=== PATIENT | male | born 1990 | race Caucasian/White ===

== ENCOUNTER → 2017-02-03 | Outpatient (CLI) | payer OTHER ==
[~2017-02-03] MED LIST: NAPR-243 PO; TRAM50TA2 PO
--- NOTE | 2017-02-03 18:10 | Diagnostic Imaging Report ---
INDICATION: Bilateral knee pain. 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 Alignment of both knees appears normal. There is no acute fracture. There is no significant joint space narrowing and there is no evidence of significant joint effusion. IMPRESSION: 1. 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 No acute fractures demonstrated. Alignment of both knees is normal. There is no significant joint space narrowing and there is no evidence of a significant joint effusion. Dictated by: Dictated on workstation # [id number]
== END ==
LOC: RAD 17:40
PROVIDERS: ATTEND Family Medicine
DX: M25.562 Pain in left knee (principal); M25.561 Pain in right knee

== ENCOUNTER 2017-05-03 07:30 | Emergency (ER) | payer OTHER ==
[~2017-05-03] VITALS: Ht 167.6 cm; Wt 81.6 kg
[2017-05-03] MEDS ORDERED: TETRACAINE 0.5% OPHTH SOLN 4 ML BTL (SINGLE DOSE ONLY) ONE (07:54)
[2017-05-03] MEDS ORDERED: TETRACAINE 0.5% OPHTH SOLN 4 ML BTL (SINGLE DOSE ONLY) OP ONE (08:00)
[2017-05-03] MEDS ORDERED: KETOROLAC 60 MG/2 ML VIAL IM ONE (08:45)
[2017-05-03] MEDS ORDERED: oxyCODONE/APAP 5/325MG (PERCOCET 5) TABLET PO ONE (08:45)
--- NOTE | 2017-05-03 09:44 | ED General ---
General Chief Complaint: Ear Problems Stated Complaint: EAR PAIN Nursing Triage Note: PT REPORTS R EAR PAIN FOR A COUPLE OF DAYS. HE DENIES FEVER. Nursing Sepsis Screen: No Definite Risk Source of Information: Patient Exam Limitations: No Limitations History of Present Illness Time Seen by Provider: 07:56 Initial Comments This 26-year-old gentleman presents to the emergency room with excruciating right ear pain. He has had symptoms for the past 2 days acutely. However, he has had intermittent problems with the right ear for many years. He reports that he was supposed to see an ENT specialist several years ago but never followed through because of lack of insurance. He denies any fever. He denies any pain elsewhere. He has used some yrbc-xme-gwywmfh ear drops which have not been helpful for the pain. He denies any dental problems. He is afebrile. He took Aleve for pain which was not very helpful. He is in distress due to the pain. Allergies and Home Medications Allergies Coded Allergies: Penicillins (Verified Allergy, Severe, 11/27/13) Home Medications Clindamycin HCl 300 Mg Capsule, 300 MG PO QID, #40 Prescribed by: SAM GARZA on 05/03/17 0946 Naproxen 500 Mg Tablet, 1 EACH PO BID PRN for PAIN, #20 Prescribed by: ALTON LEVY on 11/27/13 1530 Neomycin/Polymyxin B Sulf/Hc 10 Ml Solution, 4 DROPS OT QID, #1 Prescribed by: SAM GARZA on 05/03/17 0946 Oxycodone HCl/Acetaminophen 1 Each Tablet, 1 EACH PO Q4H PRN for PAIN-MODERATE TO SEVERE, #15 Prescribed by: SAM GARZA on 05/03/17 0946 Tramadol Hcl 50 Mg Tablet, 50 MG PO Q6H, #20 Ref 0 Prescribed by: ALTON LEVY on 11/27/13 1530 Constitutional: no symptoms reported EENTM: see HPI Respiratory: no symptoms reported Cardiovascular: no symptoms reported Gastrointestinal: no symptoms reported Genitourinary: no symptoms reported Musculoskeletal: no symptoms reported Skin: no symptoms reported Psychiatric/Neurological: No Symptoms Reported Hematologic/Lymphatic: No Symptoms Reported Immunological/Allergic: no symptoms reported Past Kcmcdvw-Mlwbyy-Bdmdlp Hx Patient Social History Alcohol Use: Denies Use Recreational Drug Use: No Smoking Status: Current Everyday Smoker Type Used: Cigarettes 2nd Hand Smoke Exposure: Yes Recent Foreign Travel: No Contact w/Someone Who Travel: No Recent Infectious Disease Expo: No Recent Hopitalizations: No Immunizations Up To Date Tetanus Booster (TDap): More than 5yrs Seasonal Allergies Seasonal Allergies: No Surgeries HX Surgeries: Yes Surgeries: Tonsillectomy Respiratory Hx Respiratory Disorders: No Cardiovascular Hx Cardiac Disorders: No Neurological Hx Neurological Disorders: No Reproductive System Hx Reproductive Disorders: No Sexually Transmitted Disease: No HIV/AIDS: No Genitourinary Hx Genitourinary Disorders: No Gastrointestinal Hx Gastrointestinal Disorders: No Musculoskeletal Hx Musculoskeletal Disorders: Yes (knee problems) Endocrine Hx Endocrine Disorders: No HEENT HX ENT Disorders: No Loss of Vision: Denies Hearing Impairment: Denies Cancer Hx Cancer: No Psychosocial Hx Psychiatric Problems: No Integumentary HX Skin/Integumentary Disorder: No Blood Transfusions Hx Blood Disorders: No Adverse Reaction to a Blood Tr: No Physical Exam Vital Signs Vital Sign - Last 12Hours 05/03/17 07:30 Temp 97.2 Pulse 78 Resp 16 B/P (MAP) 138/82 Pulse Ox 98 O2 Delivery Room Air Capillary Refill : Less Than 3 Seconds General Appearance: WD/WN, Moderate Distress HEENT: PERRL/EOMI, Pharynx Normal, TM Abnormal (R) (erythematous and cloudy), Other (right ear canal is also erythematous. [place] teeth are partially impacted. 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 Tetracaine drops did help some but did not give sufficient relief. Patient received a Toradol injection and Percocet. He has a penicillin allergy and will therefore be started on clindamycin. He does not know if he can tolerate cephalosporins. An appointment was made for him with Dr. Ingram's clinic at 16:00 tomorrow. Departure Impression Impression: Primary Impression: Right otitis media Qualified Codes: H66.41 - Suppurative otitis media, unspecified, right ear Additional Impressions: Right otitis externa Qualified Codes: H60.501 - Unspecified acute noninfective otitis externa, right ear Impacted molar Otalgia Qualified Codes: H92.01 - Otalgia, right ear Disposition: HOME, SELF-CARE Condition: Improved Departure-Patient Inst. Decision time for Depature: 09:30 Referrals: ASYA INGRAM MD, CHAD C MD (PCP/Family) Primary Care Physician Patient Instructions: Ear Infections (Otitis Media) (DC) Add. Discharge Instructions: Use your ear drops as prescribed. Complete your antibiotics as prescribed unless otherwise instructed by a physician. Follow-up with Dr. Ingram's office at 4:00 p.m. tomorrow. Take ibuprofen up to 800 mg every 8 hours as needed for pain. Add Percocet as prescribed for pain not controlled by ibuprofen. Return to the ER if symptoms are not improving. Do not drive, operate machinery, or making important decisions while taking Percocet. Percocet may cause constipation. Consider taking a stool softener with this medication. All discharge instructions reviewed with patient and/or family. Voiced understanding. Scripts Neomycin/Polymyxin B Sulf/Hc (Kqihvfvd-Oxckydwpo-Sa Ear Soln) 10 Ml Solution 4 DROPS OT QID, #1 EA Prov: SAM VELASQUEZ MD 05/03/17 Oxycodone HCl/Acetaminophen (Percocet 5-325 mg Tablet) 1 Each Tablet 1 EACH PO Q4H Y for PAIN-MODERATE TO SEVERE, #15 TAB Prov: SAM VELASQUEZ MD 05/03/17 Clindamycin HCl (Clindamycin HCl) 300 Mg Capsule 300 MG PO QID, #40 CAP Prov: SAM VELASQUEZ MD 05/03/17 Copy Copies To 1: ASYA INGRAM MD, JOSHUA T MD May 03, 2017 09:44
[2017-05-03] MEDS ORDERED: OXYC-197 PO (09:46)
[2017-05-03] MEDS ORDERED: NEOM10SO8 OT (09:46)
[2017-05-03] MEDS ORDERED: CLIN300C11 PO (09:46)
[2017-05-03 09:55] VITALS: BP 138/82
--- OUTSIDE RECORDS SUMMARY | 2017-05-12 17:50 | XMS REPORT ---
Author Author ARON PRITCHETT [facility] eClinicalWorks Address Unknown Phone Unavailable Care Team Providers Care Supervisor Metal Furniture Assembly Name Role Phone ARON PRITCHETT CP Unavailable Allergies, Adverse Reactions, Alerts Substance Reaction Event Type PCN Vomiting Non Drug Allergy Problems Problem Type Condition Code Onset Dates Condition Status Assessment Pharyngitis due to Streptococcus species J02.0 Active Assessment Urticaria L50.9 Active Medications Medication Code System Code Instructions Start Date End Date Status Dosage Cefdinir [facility] [address]-68 300 MG Orally 2 times a day Aug 17, 2016Aug 1 capsule PredniSONE [facility] [address]-97 50 mg Orally Once a day Aug 17, 2016 Aug 22, 2016 1 tablet Procedures Procedure Coding System Code Date Office Visit, Est Pt., Level 3 CPT-4 58352 Aug 17, 2016 STREP A ASSAY W/OPTIC CPT-4 07138 Aug 17, 2016 Vital Signs Date/Time: Aug 17, 2016 Blood Pressure Systolic 132 mmHg Cardiac Monitoring Heart Rate 80 bpm Weight 175 lbs Blood Pressure Diastolic 72 mmHg Results Name Result Date Reference Range Unit Abnormality Flag STREP A (IN HOUSE) ----STREP A possitive [id number] ----Control + [id number] ----Lot # [id number] ----Exp date 05/16/201820160817 Summary Purpose eClinicalWorks Submission
== END 2017-05-03 09:55 | disposition home or self-care (01) ==
LOC: ER 07:30
DX: H66.91 Otitis media, unspecified, right ear (principal); H60.91 Unspecified otitis externa, right ear; K01.1 Impacted teeth; F17.210 Nicotine dependence, cigarettes, uncomplicated
CPT/HCPCS: 96372; 99284

== ENCOUNTER 2017-07-22 06:51 | Emergency (ER) | payer OTHER ==
[~2017-07-22] VITALS: Ht 172.7 cm; Wt 99.8 kg
[~2017-07-22 06:51] MED LIST changes: +CLIN300C11 PO; +NEOM10SO8 OT; +OXYC-197 PO
[2017-07-22 07:20] LABS: BILIRUBIN,URINE NEGATIVE (NEGATIVE); KETONES,URINE NEGATIVE (NEGATIVE); LEUKOCYTE ESTERASE ,URINE 1+ (NEGATIVE); NITRITE,URINE NEGATIVE (NEGATIVE); PH,URINE 6 (5-9); PROTEIN,URINE NEGATIVE (NEGATIVE); UROBILINOGEN,URINE 1 MG/DL (NORMAL)
[2017-07-22 07:52] LABS: BASOPHILS # (AUTO) 0.1 10^3/uL (0.0-0.1); BASOPHILS % (AUTO) 1 % (0-10); EOSINOPHILS # (AUTO) 0.3 10^3/uL (0.0-0.3); EOSINOPHILS % (AUTO) 3 % (0-10); LYMPHOCYTES # (AUTO) 2.9 X 10^3 (1.0-4.0); LYMPHOCYTES % (AUTO) 36 % (12-44); MEAN CORPUSCULAR HEMOGLOBIN 32 PG (25-34); MEAN CORPUSCULAR HGB CONC 34 G/DL (32-36); MEAN CORPUSCULAR VOLUME 94 FL (80-99); MEAN PLATELET VOLUME 10.2 FL (7.4-10.4); MONOCYTES # (AUTO) 0.5 X 10^3 (0.0-1.0); MONOCYTES % (AUTO) 7 % (0-12); NEUTROPHILS # (AUTO) 4.3 X 10^3 (1.8-7.8); NEUTROPHILS % (AUTO) 53 % (42-75); PLATELET COUNT 235 10^3/uL (130-400); RED BLOOD COUNT 4.78 10^6/uL (4.35-5.85); RED CELL DISTRIBUTION WIDTH 13.4 % (10.0-14.5)
[2017-07-22 08:01] LABS: ALANINE AMINOTRANSFERASE 19 U/L (0-55); ALBUMIN 4.1 GM/DL (3.2-4.5); ANION GAP 8 MMOL/L (5-14); ASPARTATE AMINO TRANSFERASE 18 U/L (5-34); BILIRUBIN,TOTAL 0.2 MG/DL (0.1-1.0); BLOOD UREA NITROGEN 9 MG/DL (7-18); BUN/CREATININE RATIO 13; CALCIUM 8.9 MG/DL (8.5-10.1); CARBON DIOXIDE 24 MMOL/L (21-32); CHLORIDE 108 MMOL/L (98-107); CREATININE SERUM 0.71 MG/DL (0.60-1.30); GFR ESTIMATED > 60; GLUCOSE 102 MG/DL (70-105); LIPASE 80 U/L (8-78); POTASSIUM 4.3 MMOL/L (3.6-5.0); SODIUM 140 MMOL/L (135-145); TOTAL PROTEIN 7.1 GM/DL (6.4-8.2)
--- NOTE | 2017-07-22 08:40 | ED GI ---
General Chief Complaint: Abdominal/GI Problems Stated Complaint: STOMACH PAIN,VOMITING,GOYAL Nursing Triage Note: c/o intermittant vomiting since yestereday. Vomited x 5 yesterday and then again this morning. Denies fever. Sepsis Screen: No Definite Risk Source of Information: Patient Exam Limitations: No Limitations History of Present Illness Time Seen By Provider: 08:34 Initial Comments The patient is a 26-year-old white male who presents with complaints of stomachache vomiting and headache. This apparently began yesterday. 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 He also attempted to go this morning and similarly was determined by vomiting. Apparently at work they did vital signs and found his blood pressure to be elevated and were concerned about this. Timing/Duration: 1-2 Days Severity/Quality: Moderate Location: Generalized Abdomen Radiation: No Radiation Associated Symptoms: Headache, Nausea/Vomiting, Weakness Allergies and Home Medications Allergies Coded Allergies: Penicillins (Verified Allergy, Severe, 11/27/13) Review of Systems Constitutional: see HPI EENTM: No Symptoms Reported Respiratory: No Symptoms Reported Cardiovascular: No Symptoms Reported Gastrointestinal: See HPI Musculoskeletal: no symptoms reported Skin: no symptoms reported Psychiatric/Neurological: No Symptoms Reported Past Obotmww-Juhmxf-Ilgsaf Hx Patient Social History Alcohol Use: Denies Use Recreational Drug Use: No Smoking Status: Current Everyday Smoker Type Used: Cigarettes 2nd Hand Smoke Exposure: Yes Recent Foreign Travel: No Contact w/Someone Who Travel: No Recent Infectious Disease Expo: No Recent Hopitalizations: No Immunizations Up To Date Tetanus Booster (TDap): More than 5yrs Seasonal Allergies Seasonal Allergies: No Surgeries History of Surgeries: Yes (nose) Surgeries: Tonsillectomy Respiratory History of Respiratory Disorde: No Cardiovascular History of Cardiac Disorders: No Neurological History of Neurological Disord: No Reproductive System Hx Reproductive Disorders: No Sexually Transmitted Disease: No HIV/AIDS: No Gastrointestinal History of Gastrointestinal Di: No Musculoskeletal History of Musculoskeletal Dis: Yes (knee problems) Endocrine History of Endocrine Disorders: No HEENT Loss of Vision: Denies Hearing Impairment: Denies Cancer History of Cancer: No Psychosocial History of Psychiatric Problem: No Integumentary History of Skin or Integumenta: No Blood Transfusions History of Blood Disorders: No Adverse Reaction to a Blood Tr: No Physical Exam Vital Signs VS - Last 72 Hours, by Label 07/22/17 07:05 Temp 96.4 Pulse 70 Resp 16 B/P (MAP) 135/96 Capillary Refill : Less Than 3 Seconds General Appearance: WD/WN, no apparent distress HEENT: normal ENT inspection Neck: full range of motion Respiratory: chest non-tender, lungs clear, normal breath sounds, no respiratory distress, no accessory muscle use Cardiovascular: normal peripheral pulses, regular rate, rhythm, no edema, no gallop, no JVD, no murmur Gastrointestinal: abnormal bowel sounds (decreased) Back: normal inspection, no CVA tenderness Neurologic/Psychiatric: senior staff consultant II-XII nml as tested, no motor/sensory deficits, alert, normal mood/affect, oriented x 3 Lymphatic: no adenopathy Progress/Results/Core Measures Results/Orders Lab Results Laboratory Tests Test 07/22/17 07:15 07/22/17 07:30 Range/Units Urine Color YELLOW Urine Clarity CLEAR Urine pH 6 5-9 Urine Specific [place] 1.025 H 1.016-1.022 Urine Protein NEGATIVE NEGATIVE Urine Glucose (UA) NEGATIVE NEGATIVE Urine Ketones NEGATIVE NEGATIVE Urine Nitrite NEGATIVE NEGATIVE Urine Bilirubin NEGATIVE NEGATIVE Urine Urobilinogen 1 NORMAL MG/DL Urine Leukocyte Esterase 1+ H NEGATIVE Urine RBC (Auto) NEGATIVE NEGATIVE Urine RBC NONE /HPF Urine WBC NONE /HPF Urine Crystals NONE /LPF Urine Bacteria NEGATIVE /HPF Urine Casts NONE /LPF Urine Mucus SMALL H /LPF Urine Culture Indicated NO White Blood Count 8.0 4.3-11.0 10^3/uL Red Blood Count 4.78 4.35-5.85 10^6/uL Hemoglobin 15.2 13.3-17.7 G/DL Hematocrit 45 40-54 % Mean Corpuscular Volume 94 80-99 FL Mean Corpuscular Hemoglobin 32 25-34 PG Mean Corpuscular Hemoglobin Concent 34 32-36 G/DL Red Cell Distribution Width 13.4 10.0-14.5 % Platelet Count 235 130-400 10^3/uL Mean Platelet Volume 10.2 7.4-10.4 FL Neutrophils (%) (Auto) 53 42-75 % Lymphocytes (%) (Auto) 36 12-44 % Monocytes (%) (Auto) 7 0-12 % Eosinophils (%) (Auto) 3 0-10 % Basophils (%) (Auto) 1 0-10 % Neutrophils # (Auto) 4.3 1.8-7.8 X 10^3 Lymphocytes # (Auto) 2.9 1.0-4.0 X 10^3 Monocytes # (Auto) 0.5 0.0-1.0 X 10^3 Eosinophils # (Auto) 0.3 0.0-0.3 10^3/uL Basophils # (Auto) 0.1 0.0-0.1 10^3/uL Sodium Level 140 135-145 MMOL/L Potassium Level 4.3 3.6-5.0 MMOL/L Chloride Level 108 H 98-107 MMOL/L Carbon Dioxide Level 24 21-32 MMOL/L Anion Gap 8 5-14 MMOL/L Blood Urea Nitrogen 9 7-18 MG/DL Creatinine 0.71 0.60-1.30 MG/DL Estimat Glomerular Filtration Rate > 60 BUN/Creatinine Ratio 13 Glucose Level 102 70-105 MG/DL Calcium Level 8.9 8.5-10.1 MG/DL Total Bilirubin 0.2 0.1-1.0 MG/DL Aspartate Amino Transf (AST/SGOT) 18 5-34 U/L Alanine Aminotransferase (ALT/SGPT) 19 0-55 U/L Alkaline Phosphatase 69 40-136 U/L Total Protein 7.1 6.4-8.2 GM/DL Albumin 4.1 3.2-4.5 GM/DL Lipase 80 H 8-78 U/L My Orders Orders - CRISTIANE WASSERMAN MD Cbc With Automated Diff (07/22/17 06:54) Comprehensive Metabolic Panel (07/22/17 06:54) Lipase (07/22/17 06:54) Ua Culture If Indicated (07/22/17 06:54) Ondansetron Oral Dissolve Tab (Zofran (07/22/17 08:45) Vital Signs/I&O Vital Sign - Last 12Hours 07/22/17 07:05 Temp 96.4 Pulse 70 Resp 16 B/P (MAP) 135/96 Blood Pressure Mean: 109 Departure Impression Impression: Primary Impression: gastroenteritis Disposition: 01 HOME, SELF-CARE Condition: Stable/Unchanged Departure-Patient Inst. Decision time for Depature: 08:39 Referrals: CHRISTINA KIRBY MD (PCP/Family) Primary Care Physician Patient Instructions: Polycystic Kidney Disease Add. Discharge Instructions: All discharge instructions reviewed with patient and/or family. Voiced understanding. Clear liquid diet with small frequent intake of Gatorade/7-Up If no vomiting and 12-24 hours you may slowly reintroduce food beginning with broth soup and chicken noodle then dry toast LUX,CRISTIANE Mccollum MD Jul 22, 2017 08:40
[2017-07-22 08:45] VITALS: BP 132/70
[2017-07-22] MEDS ORDERED: ONDANSETRON 4 MG (ZOFRAN) ORAL DISSOLVE TAB PO ONE (08:45)
== END 2017-07-22 08:45 | disposition home or self-care (01) ==
LOC: EDUNIT# 06:51 → ER 06:54
DX: K52.9 Noninfective gastroenteritis and colitis, unspecified (principal); F17.210 Nicotine dependence, cigarettes, uncomplicated; Z90.89 Acquired absence of other organs
CPT/HCPCS: 36415; 80053; 81000; 83690; 85025; 99284

== ENCOUNTER 2018-05-12 06:41 | Emergency (ER) | payer SELFPAY ==
[~2018-05-12] VITALS: Ht 167.6 cm; Wt 79.4 kg
--- OUTSIDE RECORDS SUMMARY | 2018-05-12 06:48 | XMS REPORT ---
Author Author IRISH BOTELLO Organization [facility] Address [address] [place] [address] Care Team Providers Care Key Bed Installer Name Role Phone IRISH BOTELLO Unavailable PROBLEMS Unknown Problems ALLERGIES Substance Reaction Event Type Date Status PCN Vomiting Non Drug Allergy Nov, Active ENCOUNTERS Encounter Location Date Diagnosis [address] [address] Mar, [address] [address] Mar, Pain of right thumb M79.[address] [address] Nov, Acute maxillary sinusitis, recurrence not specified J01.[address] [address] Jul, Urticaria L50.9 and Pharyngitis due to Streptococcus species J02.0 [place] [id number] [place] [phone] Nov, [place] [id number] [place] [phone] Nov, [place] [id number] [place] [phone] Nov, IMMUNIZATIONS No Known Immunizations SOCIAL HISTORY Never Assessed REASON FOR VISIT Eye c/o-area under left eye is swollen, has been this way since wednesday, trouble opening eye this morning, no fevers, [facility] Activity Details Follow Up prn Reason:eye VITAL SIGNS Height 66 in 2017-12-08 Weight 192.7 lbs 2017-12-08 Temperature 99.4 degrees Fahrenheit 2017-12-08 Heart Rate 82 bpm 2017-12-08 Respiratory Rate 18 2017-12-08 BMI 31.10 kg/m2 2017-12-08 Blood pressure systolic 112 mmHg 2017-12-08 Blood pressure diastolic 78 mmHg 2017-12-08 MEDICATIONS Medication Instructions Dosage Frequency Start Date End Date Duration Status Doxycycline Hyclate 100 MG Orally every 12 hrs 1 capsule 12h Nov, Dec, 10 day(s) Active RESULTS No Results PROCEDURES No Known procedures INSTRUCTIONS MEDICATIONS ADMINISTERED No Known Medications MEDICAL (GENERAL) HISTORY Type Description Date Surgical History T&A Surgical History Fractured nose sx
[2018-05-12] MEDS ORDERED: NS IV 1000 ML 1,000 ML IV STA (07:20)
[2018-05-12] MEDS ORDERED: KETOROLAC 30 MG/ML VIAL IVP STA (07:20)
[2018-05-12] MEDS ORDERED: HYOSCYAMINE 0.125 MG (LEVSIN) TAB SL ONE (07:30)
--- NOTE | 2018-05-12 08:01 | ED General ---
General Chief Complaint: Bite-Animal/Human/Insect Stated Complaint: BIT BY TICK APPROX 2 WKS AGO Nursing Triage Note: Pt presents to ED wearing uniform for his work stating had a tick bite on back 2 weeks ago and now rash. Pt states left work Wednesday ill, called in Wednesday, and left work today stating he can not wait for 2 pm appt at [facility]. Some N/V/D sx reported. Nursing Sepsis Screen: No Definite Risk Source of Information: Patient Exam Limitations: No Limitations History of Present Illness Date Seen by Provider: May 12, 2018 Time Seen by Provider: 07:15 Initial Comments Here with report of concerns related to a tick bite. States he got the bite on his back about 2 weeks ago he was mowing. The tick was embedded. Somebody else pulled the tick off by burning it. He has developed a rash around that area reportedly. Complains of 2-3 days of nausea, vomiting and diarrhea. No diarrhea today but still has some nausea. States each time he eats he gets nauseated now. Try to go to work for the last couple of days and can't. Does have appointment later today but could not wait. Concerned about the tick bite as a cause of all of this. Timing/Duration: 2-3 Days, Changing Over Time Severity: Moderate Modifying Factors: worse with Eating Associated Systoms: No Chest Pain, No Fever/Chills, No Headaches; Nausea/ Vomiting; No Shortness of Air, No Weakness Allergies and Home Medications Allergies Coded Allergies: Penicillins (Verified Allergy, Severe, 11/27/13) Home Medications No Active Prescriptions or Reported Meds Patient Home Medication List Home Medication List Reviewed: Yes Review of Systems Constitutional: see HPI; No chills, No fever EENTM: no symptoms reported Respiratory: no symptoms reported Cardiovascular: no symptoms reported Gastrointestinal: abdominal pain (generalized cramping), diarrhea, nausea, vomiting Genitourinary: no symptoms reported Musculoskeletal: no symptoms reported Skin: see HPI, change in color, rash Psychiatric/Neurological: No Symptoms Reported All Other Systems Reviewed Negative Unless Noted: Yes Past Ujboype-Enwvtt-Fjehtd Hx Past Med/Social Hx: Reviewed Nursing Past Med/Soc Hx Patient Social History Alcohol Use: Rarely Uses Recreational Drug Use: No Type Used: Cigarettes 2nd Hand Smoke Exposure: Yes Recent Foreign Travel: No Contact w/Someone Who Travel: No Recent Infectious Disease Expo: No Recent Hopitalizations: No Immunizations Up To Date Tetanus Booster (TDap): More than 5yrs Seasonal Allergies Seasonal Allergies: No Past Medical History Surgeries: Yes (nose) Adenoidectomy, Tonsillectomy Respiratory: No Cardiac: No Neurological: No Reproductive Disorders: No Sexually Transmitted Disease: No HIV/AIDS: No Genitourinary: No Gastrointestinal: No Musculoskeletal: Yes (knee problems) Endocrine: No HEENT: No Loss of Vision: Denies Hearing Impairment: Denies Cancer: No Psychosocial: No Integumentary: No Blood Disorders: No Adverse Reaction/Blood Tranf: No Family Medical History Reviewed Nursing Family Hx No Pertinent Family Hx Physical Exam Vital Signs Vital Signs - First Documented 05/12/18 06:46 Temp 97.5 Pulse 76 Resp 20 B/P (MAP) 125/98 (107) Pulse Ox 97 O2 Delivery Room Air Capillary Refill : Less Than 3 Seconds Height, Weight, BMI Height: 5'6.00" Weight: 175lbs. oz. 79.934894ie; BMI Method:Stated General Appearance: No Apparent Distress, WD/WN HEENT: PERRL/EOMI, Pharynx Normal Neck: Non Tender, Supple Respiratory: Lungs Clear, Normal Breath Sounds Cardiovascular: Regular Rate, Rhythm, No Murmur Gastrointestinal: Normal Bowel Sounds, Soft, Tenderness (mild diffuse upper abdominal tenderness) Back: Normal Inspection, No CVA Tenderness, No Vertebral Tenderness Extremity: Normal Range of Motion, Non Tender Neurologic/Psychiatric: Alert, Oriented x3 Skin: Warm/Dry, Rash (several small macular lesions to the area of the mid back in the place where patient reports the tick bite was.) Progress/Results/Core Measures Suspected Sepsis Recent Fever Within 48 Hours: No Infection Criteria Present: None New/Unexplained Altered Menta: No Sepsis Screen: No Definite Risk SIRS Temperature:97.5 Pulse: 76 Respiratory Rate: 20 Laboratory Tests 05/12/18 07:27: White Blood Count 7.9 Blood Pressure 125 /98 Mean: 107 Laboratory Tests 05/12/18 07:27: Creatinine 0.67, Platelet Count 226, Total Bilirubin 0.2 Results/Orders Lab Results Laboratory Tests Test 05/12/18 07:27 05/12/18 08:02 05/12/18 08:26 Range/Units White Blood Count 7.9 4.3-11.0 10^3/uL Red Blood Count 4.45 4.35-5.85 10^6/uL Hemoglobin 14.3 13.3-17.7 G/DL Hematocrit 42 40-54 % Mean Corpuscular Volume 94 80-99 FL Mean Corpuscular Hemoglobin 32 25-34 PG Mean Corpuscular Hemoglobin Concent 34 32-36 G/DL Red Cell Distribution Width 13.4 10.0-14.5 % Platelet Count 226 130-400 10^3/uL Mean Platelet Volume 10.3 7.4-10.4 FL Neutrophils (%) (Auto) 55 42-75 % Lymphocytes (%) (Auto) 33 12-44 % Monocytes (%) (Auto) 6 0-12 % Eosinophils (%) (Auto) 5 0-10 % Basophils (%) (Auto) 1 0-10 % Neutrophils # (Auto) 4.4 1.8-7.8 X 10^3 Lymphocytes # (Auto) 2.6 1.0-4.0 X 10^3 Monocytes # (Auto) 0.5 0.0-1.0 X 10^3 Eosinophils # (Auto) 0.4 H 0.0-0.3 10^3/uL Basophils # (Auto) 0.1 0.0-0.1 10^3/uL Sodium Level 139 135-145 MMOL/L Potassium Level 4.3 3.6-5.0 MMOL/L Chloride Level 109 H 98-107 MMOL/L Carbon Dioxide Level 24 21-32 MMOL/L Anion Gap 6 5-14 MMOL/L Blood Urea Nitrogen 10 7-18 MG/DL Creatinine 0.67 0.60-1.30 MG/DL Estimat Glomerular Filtration Rate > 60 BUN/Creatinine Ratio 15 Glucose Level 96 70-105 MG/DL Calcium Level 8.7 8.5-10.1 MG/DL Total Bilirubin 0.2 0.1-1.0 MG/DL Aspartate Amino Transf (AST/SGOT) 21 5-34 U/L Alanine Aminotransferase (ALT/SGPT) 23 0-55 U/L Alkaline Phosphatase 49 40-136 U/L Total Protein 6.6 6.4-8.2 GM/DL Albumin 3.9 3.2-4.5 GM/DL Amylase Level 28 25-125 U/L Lipase 21 8-78 U/L Urine Color YELLOW Urine Clarity CLEAR Urine pH 8 5-9 Urine Specific [place] 1.015 L 1.016-1.022 Urine Protein NEGATIVE NEGATIVE Urine Glucose (UA) NEGATIVE NEGATIVE Urine Ketones NEGATIVE NEGATIVE Urine Nitrite NEGATIVE NEGATIVE Urine Bilirubin NEGATIVE NEGATIVE Urine Urobilinogen NORMAL NORMAL MG/DL Urine Leukocyte Esterase NEGATIVE NEGATIVE Urine RBC (Auto) NEGATIVE NEGATIVE Urine RBC NONE /HPF Urine WBC RARE /HPF Urine Crystals NONE /LPF Urine Bacteria NEGATIVE /HPF Urine Casts NONE /LPF Urine Mucus NEGATIVE /LPF Urine Culture Indicated NO My Orders Orders - ALTON LEVY MD Amylase (05/12/18 07:20) Cbc With Automated Diff (05/12/18 07:20) Comprehensive Metabolic Panel (05/12/18 07:20) Lipase (05/12/18 07:20) Ua Culture If Indicated (05/12/18 07:20) Ns Iv 1000 Ml (Sodium Chloride 0.9%) (05/12/18 07:20) Hyoscyamine Sl Tablet (Levsin Sl Tablet) (05/12/18 07:30) Saline Lock/Iv-Start (05/12/18 07:20) Ketorolac Injection (Toradol Injection) (05/12/18 07:20) Tick Panel With Lyme Eia (05/12/18 07:22) Medications Given in ED Current Medications Medications Dose Ordered Sig/Sharon Route Start Time Stop Time Status Last Admin Dose Admin Hyoscyamine Sulfate 0.125 mg ONCE ONCE SL 05/12/18 07:30 05/12/18 07:31 DC 05/12/18 07:36 0.125 MG Vital Signs/I&O 05/12/18 06:46 Temp 97.5 Pulse 76 Resp 20 B/P (MAP) 125/98 (107) Pulse Ox 97 O2 Delivery Room Air Capillary Refill : Less Than 3 Seconds Blood Pressure Mean: 107 Progress Note : Progress Note Seen and evaluated. IV, labs, tick panel, normal saline 1 L bolus and Levsin 0.125 mg by mouth ordered. Toradol 30 mg IV for abdominal discomfort. Monitor patient. 0909: Overall improved. As noted findings. Discharged home with return precautions. Patient verbalize understanding instructions and agreement with plan. We will initiate treatment for possible tickborne illness given his tick bite. He was to follow-up with the clinic today and he is not sure if he is doing that now. He'll get the prescription filled. Departure Impression Primary Impression: Tick bite of back Qualified Codes: S30.860A - Insect bite (nonvenomous) of lower back and pelvis , initial encounter; W57.XXXA - Bitten or stung by nonvenomous insect and other nonvenomous arthropods, initial encounter Additional Impression: Vomiting and diarrhea Disposition: HOME, SELF-CARE Condition: Improved Departure-Patient Inst. Decision time for Depature: 09:14 Referrals: CHRISTINA KIRBY MD (PCP/Family) Primary Care Physician Patient Instructions: Diarrhea and Traveler's Diarrhea, Adult (DC), Insect Bites and Stings (DC), Nausea and Vomiting, Adult (DC) Add. Discharge Instructions: All discharge instructions reviewed with patient and/or family. Voiced understanding. Clear liquid diet for the next 24 hours and then advance as tolerated. Follow- up with your Dr. today as scheduled or in a few days for recheck and further evaluation. Return for worse pain, fever, vomiting, weakness, breathing problems or other concerns as needed. You have been prescribed initial starter pack for possibility of tick born illness. If this is positive, you'll be called and will need further prescription. Ensure that you take the complete dosing of antibiotics prescribed this time. Scripts Promethazine HCl (Promethazine Tablet) 25 Mg Tablet 25 MG PO Q8H PRN for NAUSEA/VOMITING, #14 TAB 0 Refills Prov: ALTON LEVY MD 05/12/18 Doxycycline Hyclate (Doxycycline Hyclate) 100 Mg Tablet 100 MG PO BID, #20 TAB 0 Refills Prov: ALTON LEVY MD 05/12/18 Copy Copies To 1: CHRISTINA KIRBY MD, TIMOTHY D MD May 12, 2018 08:01
[2018-05-12 08:03] LABS: BASOPHILS # (AUTO) 0.1 10^3/uL (0.0-0.1); BASOPHILS % (AUTO) 1 % (0-10); EOSINOPHILS # (AUTO) 0.4 10^3/uL (0.0-0.3); EOSINOPHILS % (AUTO) 5 % (0-10); HEMATOCRIT 42 % (40-54); HEMOGLOBIN 14.3 G/DL (13.3-17.7); LYMPHOCYTES # (AUTO) 2.6 X 10^3 (1.0-4.0); LYMPHOCYTES % (AUTO) 33 % (12-44); MEAN CORPUSCULAR HEMOGLOBIN 32 PG (25-34); MEAN CORPUSCULAR HGB CONC 34 G/DL (32-36); MEAN CORPUSCULAR VOLUME 94 FL (80-99); MEAN PLATELET VOLUME 10.3 FL (7.4-10.4); MONOCYTES # (AUTO) 0.5 X 10^3 (0.0-1.0); MONOCYTES % (AUTO) 6 % (0-12); NEUTROPHILS # (AUTO) 4.4 X 10^3 (1.8-7.8); NEUTROPHILS % (AUTO) 55 % (42-75); PLATELET COUNT 226 10^3/uL (130-400); RED BLOOD COUNT 4.45 10^6/uL (4.35-5.85); RED CELL DISTRIBUTION WIDTH 13.4 % (10.0-14.5); WHITE BLOOD COUNT 7.9 10^3/uL (4.3-11.0)
[2018-05-12 08:29] LABS: ALANINE AMINOTRANSFERASE 23 U/L (0-55); ALBUMIN 3.9 GM/DL (3.2-4.5); ALKALINE PHOSPHATASE 49 U/L (40-136); AMYLASE 28 U/L (25-125); BILIRUBIN,TOTAL 0.2 MG/DL (0.1-1.0); BUN/CREATININE RATIO 15; CALCIUM 8.7 MG/DL (8.5-10.1); CARBON DIOXIDE 24 MMOL/L (21-32); CHLORIDE 109 MMOL/L (98-107); CREATININE SERUM 0.67 MG/DL (0.60-1.30); GFR ESTIMATED > 60; GLUCOSE 96 MG/DL (70-105); LIPASE 21 U/L (8-78); POTASSIUM 4.3 MMOL/L (3.6-5.0); SODIUM 139 MMOL/L (135-145); TOTAL PROTEIN 6.6 GM/DL (6.4-8.2)
[2018-05-12 08:34] LABS: BILIRUBIN,URINE NEGATIVE (NEGATIVE); CLARITY,URINE CLEAR; COLOR,URINE YELLOW; GLUCOSE, URINE (UA) NEGATIVE (NEGATIVE); KETONES,URINE NEGATIVE (NEGATIVE); LEUKOCYTE ESTERASE ,URINE NEGATIVE (NEGATIVE); NITRITE,URINE NEGATIVE (NEGATIVE); PH,URINE 8 (5-9); PROTEIN,URINE NEGATIVE (NEGATIVE); UROBILINOGEN,URINE NORMAL (NORMAL)
[2018-05-12 08:43] LABS: BACTERIA,URINE NEGATIVE /HPF; WBC,URINE RARE /HPF
[2018-05-12] MEDS ORDERED: PROM25TA14 PO (09:17)
[2018-05-12] MEDS ORDERED: DOXY100T2 PO (09:17)
[2018-05-12 09:27] VITALS: BP 125/74
== END 2018-05-12 09:27 | disposition home or self-care (01) ==
LOC: EDUNIT# 06:41 → ER 06:44
DX: S20.469A Insect bite (nonvenomous) of unspecified back wall of thorax, initial encounter (principal); R11.10 Vomiting, unspecified; R19.7 Diarrhea, unspecified; Z90.89 Acquired absence of other organs; Z77.22 Contact with and (suspected) exposure to environmental tobacco smoke (acute) (chronic); Z88.0 Allergy status to penicillin; W57.XXXA Bitten or stung by nonvenomous insect and other nonvenomous arthropods, initial encounter
CPT/HCPCS: 36415; 80053; 81000; 82150; 83690; 85025; 86618; 86666; 86668; 86757; 96374

== ENCOUNTER → 2019-04-04 | Outpatient (CLI) | payer SELFPAY ==
[~2019-04-04] MED LIST changes: +DOXY100T2 PO; -OXYC-197 PO; +OXYC1TAB87 PO; +PROM25TA14 PO
--- NOTE | 2019-04-04 10:07 | Diagnostic Imaging Report ---
EXAM: RIGHT UPPER QUADRANT ULTRASOUND. DATE: April 04, 2019. COMPARISON: None. INDICATION: 28-year-old male, abdominal pain for 2 years. Nausea and vomiting. PROCEDURE: Two-dimensional grayscale and color doppler ultrasound examination of the right upper quadrant was performed. FINDINGS: Liver: The liver is of normal size and echotexture without solid or cystic masses. Bile ducts and gallbladder: There is no pericholecystic fluid, gallbladder wall thickening, or gallstones. The gallbladder wall measures 0.2 cm. There is no intrahepatic or extrahepatic biliary ductal dilation. The common bile duct measures 0.5 cm. Right kidney: Unremarkable right kidney. No hydronephrosis. The right kidney measures 11.1 cm x 4.8 cm x 4.6 cm. Pancreas: The pancreas is not well seen. IMPRESSION: 1. No evidence of cholelithiasis or acute cholecystitis. 2. No biliary ductal dilation. 3. The pancreas is not well seen. 4. Additional right upper quadrant abdominal ultrasound evaluation is unremarkable. Dictated by: Dictated on workstation # [id number]
== END ==
LOC: RAD 09:02
PROVIDERS: ATTEND Nurse Practitioner Community Health
DX: K52.9 Noninfective gastroenteritis and colitis, unspecified (principal)
CPT/HCPCS: 76705

== ENCOUNTER 2019-04-06 11:40 | Emergency (ER) | payer SELFPAY ==
[~2019-04-06] VITALS: Ht 167.6 cm; Wt 87.5 kg
--- OUTSIDE RECORDS SUMMARY | 2019-04-06 11:44 | XMS REPORT ---
Author Author AMINAH Edmonds Organization [facility] Address [address] [place] [address] Care Team Providers Care Support Services Rep Name Role Phone AMINAH Edmonds Unavailable PROBLEMS Unknown Problems ALLERGIES Substance Reaction Event Type Date Status PCN Vomiting Non Drug Allergy Jun, Active ENCOUNTERS Encounter Location Date Diagnosis [place] [address] [address] Jun, Gastroenteritis K52.9 [place] [address] [address] Apr, Insect bite (nonvenomous) of lower back and pelvis, initial encounter S30.860A and Bitten or stung by nonvenomous insect and other nonvenomous arthropods, initial encounter W57.XXXA [place] [address] [address] Mar, [place] [address] [place] [id number] [place] [address] Mar, Pain of right thumb M79.644 [place] [address] [address] Nov, Acute maxillary sinusitis, recurrence not specified J01.00 [place] [address] [place] [id number] [place] [address] Jul, Urticaria L50.9 and Pharyngitis due to Streptococcus species J02.0 [place] [address] [place] [id number] [place] [address] Nov, [place] [address] [address] Nov, [facility] [address] [facility] [id number] [place] [address] Nov, IMMUNIZATIONS No Known Immunizations SOCIAL HISTORY Never Assessed REASON FOR VISIT Vomiting-RaniA, Vomiting started last , subsided over weekend, but came back yesterday. Blood in vomit this morning. PLAN OF CARE Activity Details Follow Up prn Reason: VITAL SIGNS Height 66 in 2018-07-12 Weight 179.4 lbs 2018-07-12 Temperature 97.7 degrees Fahrenheit 2018-07-12 Heart Rate 60 bpm 2018-07-12 Respiratory Rate 18 2018-07-12 BMI 28.95 kg/m2 2018-07-12 Blood pressure systolic 116 mmHg 2018-07-12 Blood pressure diastolic 72 mmHg 2018-07-12 MEDICATIONS Medication Instructions Dosage Frequency Start Date End Date Duration Status Ondansetron 4 MG Orally every 4 hrs PRN 1 tablet on the tongue and allow to dissolve as needed Jun, 5 days Active Dicyclomine HCl 20 mg Orally 3 times a day 1 tablet 8h Jun, Jul, 7 days Active RESULTS No Results PROCEDURES No Known procedures INSTRUCTIONS MEDICATIONS ADMINISTERED No Known Medications MEDICAL (GENERAL) HISTORY Type Description Date Medical History tonsillectomy Medical History broken nose Surgical History T&A Surgical History Fractured nose sx
--- OUTSIDE RECORDS SUMMARY | 2019-04-06 11:44 | XMS REPORT ---
Author Author Migration, Doctor Organization [facility] Address Unknown Phone Unavailable Care Team Providers Care Clinical Support Specialist Name Role Phone Migration, Doctor Unavailable Unavailable PROBLEMS Type Condition ICD9-CM Code SHR52-MY Code Onset Dates Condition Status SNOMED Code Problem Irritable bowel syndrome with diarrhea K58.0 Active [id number] ALLERGIES No Information ENCOUNTERS Encounter Location Date Diagnosis [place] [address] [address] Jul, Irritable bowel syndrome with diarrhea K58.0 and Generalized abdominal pain R10.84 [place] [address] [address] Jun, Gastroenteritis K52.9 [place] [address] [address] Apr, Insect bite (nonvenomous) of lower back and pelvis, initial encounter S30.860A and Bitten or stung by nonvenomous insect and other nonvenomous arthropods, initial encounter W57.XXXA [place] [address] [place] [id number] [place] [address] Mar, [place] [address] [address] Mar, Pain of right thumb M79.644 [place] [address] [place] [id number] [place] [address] Nov, Acute maxillary sinusitis, recurrence not specified J01.00 [place] [address] [place] [id number] [place] [address] Jul, Urticaria L50.9 and Pharyngitis due to Streptococcus species J02.0 [place] [address] [address] Nov, [facility] [address] [facility] [id number] [place] [address] Nov, [facility] [address] [facility] [id number] [address] Nov, IMMUNIZATIONS No Known Immunizations SOCIAL HISTORY Never Assessed REASON FOR VISIT [facility] [place] PLAN OF CARE VITAL SIGNS MEDICATIONS No Known Medications RESULTS No Results PROCEDURES No Known procedures INSTRUCTIONS MEDICATIONS ADMINISTERED No Known Medications MEDICAL (GENERAL) HISTORY Type Description Date Medical History tonsillectomy Medical History broken nose Surgical History T&A Surgical History Fractured nose sx
--- OUTSIDE RECORDS SUMMARY | 2019-04-06 11:45 | XMS REPORT ---
Author Author ASYA CONTRERAS Organization [facility] Address [address] [place] [address] Care Team Providers Care Hydrogen Braze Furnace Operator Name Role Phone ASYA CONTRERAS Unavailable PROBLEMS Unknown Problems ALLERGIES Substance Reaction Event Type Date Status PCN Vomiting Non Drug Allergy Apr, Active ENCOUNTERS Encounter Location Date Diagnosis [address] [address] Apr, Insect bite (nonvenomous) of lower back and pelvis, initial encounter S30.860A and Bitten or stung by nonvenomous insect and other nonvenomous arthropods, initial encounter W57.XXXA [place] [address] [place] [id number] [place] [address] Mar, [place] [address] [address] Mar, Pain of right thumb M79.[address] [address] Nov, Acute maxillary sinusitis, recurrence not specified J01.00 [place] [id number] [place] [address] Jul, Urticaria L50.9 and Pharyngitis due to Streptococcus species J02.[address] [address] Nov, [place] [address] [address] Nov, [place] [address] [place] [id number] [place] [address] Nov, IMMUNIZATIONS No Known Immunizations SOCIAL HISTORY Never Assessed REASON FOR VISIT tick bite -VARUN jacques PLAN OF CARE Activity Details Follow Up prn Reason: VITAL SIGNS Height 66 in 2018-05-17 Weight 177.8 lbs 2018-05-17 Temperature 97.5 degrees Fahrenheit 2018-05-17 Heart Rate 74 bpm 2018-05-17 Respiratory Rate 18 2018-05-17 BMI 28.69 kg/m2 2018-05-17 Blood pressure systolic 110 mmHg 2018-05-17 Blood pressure diastolic 84 mmHg 2018-05-17 MEDICATIONS Medication Instructions Dosage Frequency Start Date End Date Duration Status Aleve Active Doxycycline Hyclate 100 mg Orally twice a day 1 tablet 12h Apr, May, 10 day(s) Active RESULTS No Results PROCEDURES No Known procedures INSTRUCTIONS MEDICATIONS ADMINISTERED No Known Medications MEDICAL (GENERAL) HISTORY Type Description Date Medical History tonsillectomy Medical History broken nose Surgical History T&A Surgical History Fractured nose sx
--- OUTSIDE RECORDS SUMMARY | 2019-04-06 11:45 | XMS REPORT | Continuity of Care Document ---
Author Organization Unknown Address Unknown Allergies There is no data. Medications There is no data. Problems There is no data. Procedures There is no data. Results Test Result Range CRP - 08/03/18 12:28 C-REACTIVE PROTEIN 5.5 mg/L <8.0 Encounters ACCT No. Visit Date/Time Discharge Status Pt. Type Provider Facility Loc./Unit Complaint [id number] 03/30/2019 11:40:00 03/30/2019 23:59:59 [facility] Outpatient NEREYDA STARKS [facility] [id number] 08/03/2018 11:40:00 Document Registration
--- OUTSIDE RECORDS SUMMARY | 2019-04-06 11:45 | XMS REPORT ---
Author Author DREW SPRING Organization [facility] Address [address] [place] [address] Care Team Providers Care Pit Crew Support Worker Name Role Phone DEBORAH SPRINGTA Unavailable PROBLEMS Unknown Problems ALLERGIES No Information ENCOUNTERS Encounter Location Date Diagnosis [place] [address] [place] [id number] [place] [address] Apr, Insect bite (nonvenomous) of lower back and pelvis, initial encounter S30.860A and Bitten or stung by nonvenomous insect and other nonvenomous arthropods, initial encounter W57.XXXA [place] [address] [place] [id number] [place] [address] Mar, [place] [address] [place] [id number] [place] [address] Mar, Pain of right thumb M79.644 [place] [address] [place] [id number] [place] [address] Nov, Acute maxillary sinusitis, recurrence not specified J01.00 [place] [address] [place] [id number] [place] [address] Jul, Urticaria L50.9 and Pharyngitis due to Streptococcus species J02.0 [place] [address] [place] [id number] [place] [address] Nov, [place] [address] [place] [id number] [place] [address] Nov, [place] [address] [place] [id number] [place] [address] Nov, IMMUNIZATIONS No Known Immunizations SOCIAL HISTORY Never Assessed REASON FOR VISIT work note PLAN OF CARE VITAL SIGNS MEDICATIONS No Known Medications RESULTS No Results PROCEDURES No Known procedures INSTRUCTIONS MEDICATIONS ADMINISTERED No Known Medications MEDICAL (GENERAL) HISTORY Type Description Date Medical History tonsillectomy Medical History broken nose Surgical History T&A Surgical History Fractured nose sx
--- OUTSIDE RECORDS SUMMARY | 2019-04-06 11:45 | XMS REPORT ---
Author Author KING DREW Organization [facility] Address [address] [place] [address] Care Team Providers Care Mitigation Supervisor Name Role Phone DREW SPRING Unavailable PROBLEMS Unknown Problems ALLERGIES Substance Reaction Event Type Date Status PCN Vomiting Non Drug Allergy Mar, Active ENCOUNTERS Encounter Location Date Diagnosis [place] [address] [address] Apr, Insect bite (nonvenomous) of lower back and pelvis, initial encounter S30.860A and Bitten or stung by nonvenomous insect and other nonvenomous arthropods, initial encounter W57.XXXA [place] [address] [place] [id number] [place] [address] Mar, [place] [address] [address] Mar, Pain of right thumb M79.644 [place] [address] [address] Nov, Acute maxillary sinusitis, recurrence not specified J01.00 [place] [address] [place] [id number] [place] [address] Jul, Urticaria L50.9 and Pharyngitis due to Streptococcus species J02.0 [place] [address] [address] Nov, [place] [address] [address] Nov, [place] [address] [place] [id number] [place] [address] Nov, IMMUNIZATIONS No Known Immunizations SOCIAL HISTORY Never Assessed REASON FOR VISIT right thumb injury, playing football-[employer] PLAN OF CARE Activity Details Follow Up 4-6 weeks if not better Reason:thumb pain VITAL SIGNS Height 66 in 2018-04-11 Weight 181.4 lbs 2018-04-11 Temperature 98.2 degrees Fahrenheit 2018-04-11 Heart Rate 82 bpm 2018-04-11 Respiratory Rate 18 2018-04-11 BMI 29.28 kg/m2 2018-04-11 Blood pressure systolic 118 mmHg 2018-04-11 Blood pressure diastolic 68 mmHg 2018-04-11 MEDICATIONS Medication Instructions Dosage Frequency Start Date End Date Duration Status Tramadol HCl 50 mg Orally every 8 hours, PRN 1 tablet as needed Mar, Mar, 05 days Active Aleve Active RESULTS Name Result Date Reference Range Xray : Hand, Right 3 views (IN HOUSE) 2018-04-11 PROCEDURES Procedure Date Ordered Result Body Site X-RAY EXAM OF HAND April 11, 2018 INSTRUCTIONS MEDICATIONS ADMINISTERED No Known Medications MEDICAL (GENERAL) HISTORY Type Description Date Medical History tonsillectomy Medical History broken nose Surgical History T&A Surgical History Fractured nose sx
[2019-04-06 11:56] LABS: BASOPHILS % (AUTO) 0 % (0-10); EOSINOPHILS # (AUTO) 0.2 10^3/uL (0.0-0.3); EOSINOPHILS % (AUTO) 2 % (0-10); HEMATOCRIT 45 % (40-54); HEMOGLOBIN 15.1 G/DL (13.3-17.7); LYMPHOCYTES # (AUTO) 3.4 X 10^3 (1.0-4.0); LYMPHOCYTES % (AUTO) 30 % (12-44); MEAN CORPUSCULAR HEMOGLOBIN 31 PG (25-34); MEAN CORPUSCULAR HGB CONC 34 G/DL (32-36); MEAN CORPUSCULAR VOLUME 93 FL (80-99); MEAN PLATELET VOLUME 9.5 FL (7.4-10.4); MONOCYTES # (AUTO) 0.7 X 10^3 (0.0-1.0); MONOCYTES % (AUTO) 6 % (0-12); NEUTROPHILS # (AUTO) 7.1 X 10^3 (1.8-7.8); NEUTROPHILS % (AUTO) 62 % (42-75); PLATELET COUNT 279 10^3/uL (130-400); RED CELL DISTRIBUTION WIDTH 13.7 % (10.0-14.5); WHITE BLOOD COUNT 11.5 10^3/uL (4.3-11.0)
[2019-04-06 11:57] LABS: BILIRUBIN,URINE NEGATIVE (NEGATIVE); CLARITY,URINE CLEAR; COLOR,URINE YELLOW; GLUCOSE, URINE (UA) NEGATIVE (NEGATIVE); KETONES,URINE NEGATIVE (NEGATIVE); LEUKOCYTE ESTERASE ,URINE 1+ (NEGATIVE); NITRITE,URINE NEGATIVE (NEGATIVE); PH,URINE 8 (5-9); PROTEIN,URINE NEGATIVE (NEGATIVE); UROBILINOGEN,URINE NORMAL (NORMAL)
--- NOTE | 2019-04-06 11:58 | ED Abdominal Pain ---
General Stated Complaint: ABD PAIN Source of Information: Patient Exam Limitations: No Limitations History of Present Illness Date Seen by Provider: Apr 06, 2019 Time Seen by Provider: 11:56 Initial Comments To ER with epigastric abdominal pain worse than usual for the past 2 days, nausea with inability to vomit. Pain radiates from the epigastric region down to the umbilicus. No bowel changes. No fevers or chills. He's had these problems intermittently for about a year. He had a Gallbladder ultrasound on Wednesday of this week (today is ). He does not know the results of that test (it was unremarkable without cholelithiasis or cholecystitis). Timing/Duration: Getting Worse, Intermittent Severity/Quality: Moderate Location: Epigastric Radiation: No Radiation Activities at Onset: None Associated Symptoms: Nausea/Vomiting Allergies and Home Medications Allergies Coded Allergies: Penicillins (Verified Allergy, Severe, 11/27/13) Home Medications Doxycycline Hyclate 100 Mg Tablet, 100 MG PO BID Prescribed by: ALTON LEVY on 05/12/18916 Promethazine HCl 25 Mg Tablet, 25 MG PO Q8H PRN for NAUSEA/VOMITING Prescribed by: ALTON LEVY on 05/12/18916 Patient Home Medication List Home Medication List Reviewed: Yes Review of Systems Review of Systems Constitutional: see HPI EENTM: No Symptoms Reported Respiratory: No Symptoms Reported Cardiovascular: No Symptoms Reported Gastrointestinal: See HPI, Abdominal Pain, Nausea Genitourinary: No Symptoms Reported Musculoskeletal: no symptoms reported Skin: no symptoms reported Psychiatric/Neurological: No Symptoms Reported Endocrine: No Symptoms Reported Hematologic/Lymphatic: No Symptoms Reported Past Bknpzor-Tjcwev-Neswgk Hx Patient Social History Type Used: Cigarettes 2nd Hand Smoke Exposure: Yes Recent Hopitalizations: No Immunizations Up To Date Tetanus Booster (TDap): More than 5yrs Seasonal Allergies Seasonal Allergies: No Past Medical History Surgeries: Yes (nose) Adenoidectomy, Tonsillectomy Respiratory: No Cardiac: No Neurological: No Reproductive Disorders: No Sexually Transmitted Disease: No HIV/AIDS: No Genitourinary: No Gastrointestinal: No Musculoskeletal: Yes (knee problems) Endocrine: No HEENT: No Loss of Vision: Denies Hearing Impairment: Denies Cancer: No Psychosocial: No Integumentary: No Blood Disorders: No Adverse Reaction/Blood Tranf: No Family Medical History No Pertinent Family Hx Physical Exam Vital Signs Vital Signs - First Documented 04/06/19 11:44 Temp 98.5 Pulse 73 Resp 22 B/P (MAP) 129/93 (105) Pulse Ox 99 O2 Delivery Room Air Capillary Refill : Height/Weight/BMI Height: 5'6.00" Weight: 175lbs. oz. 79.957709rc; BMI Method:Stated General Appearance: WD/WN, moderate distress HEENT: PERRL/EOMI Respiratory: normal breath sounds, no respiratory distress, no accessory muscle use Cardiovascular: regular rate, rhythm, no murmur Gastrointestinal: normal bowel sounds, soft, tenderness Extremities: normal range of motion, non-tender Neurologic/Psychiatric: alert, normal mood/affect, oriented x 3 Skin: normal color, warm/dry Progress/Results/Core Measures Results/Orders Lab Results Laboratory Tests Test 04/06/19 11:48 Range/Units White Blood Count 11.5 H 4.3-11.0 10^3/uL Red Blood Count 4.85 4.35-5.85 10^6/uL Hemoglobin 15.1 13.3-17.7 G/DL Hematocrit 45 40-54 % Mean Corpuscular Volume 93 80-99 FL Mean Corpuscular Hemoglobin 31 25-34 PG Mean Corpuscular Hemoglobin Concent 34 32-36 G/DL Red Cell Distribution Width 13.7 10.0-14.5 % Platelet Count 279 130-400 10^3/uL Mean Platelet Volume 9.5 7.4-10.4 FL Neutrophils (%) (Auto) 62 42-75 % Lymphocytes (%) (Auto) 30 12-44 % Monocytes (%) (Auto) 6 0-12 % Eosinophils (%) (Auto) 2 0-10 % Basophils (%) (Auto) 0 0-10 % Neutrophils # (Auto) 7.1 1.8-7.8 X 10^3 Lymphocytes # (Auto) 3.4 1.0-4.0 X 10^3 Monocytes # (Auto) 0.7 0.0-1.0 X 10^3 Eosinophils # (Auto) 0.2 0.0-0.3 10^3/uL Basophils # (Auto) 0.0 0.0-0.1 10^3/uL Urine Color YELLOW Urine Clarity CLEAR Urine pH 8 5-9 Urine Specific [place] 1.010 L 1.016-1.022 Urine Protein NEGATIVE NEGATIVE Urine Glucose (UA) NEGATIVE NEGATIVE Urine Ketones NEGATIVE NEGATIVE Urine Nitrite NEGATIVE NEGATIVE Urine Bilirubin NEGATIVE NEGATIVE Urine Urobilinogen NORMAL NORMAL MG/DL Urine Leukocyte Esterase 1+ H NEGATIVE Urine RBC (Auto) NEGATIVE NEGATIVE Urine RBC NONE /HPF Urine WBC 2-5 /HPF Urine Squamous Epithelial Cells RARE /HPF Urine Crystals NONE /LPF Urine Bacteria TRACE /HPF Urine Casts NONE /LPF Urine Mucus SMALL H /LPF Urine Culture Indicated NO Sodium Level 139 135-145 MMOL/L Potassium Level 4.0 3.6-5.0 MMOL/L Chloride Level 108 H 98-107 MMOL/L Carbon Dioxide Level 21 21-32 MMOL/L Anion Gap 10 5-14 MMOL/L Blood Urea Nitrogen 11 7-18 MG/DL Creatinine 0.79 0.60-1.30 MG/DL Estimat Glomerular Filtration Rate > 60 BUN/Creatinine Ratio 14 Glucose Level 95 70-105 MG/DL Calcium Level 9.6 8.5-10.1 MG/DL Corrected Calcium 8.5-10.1 MG/DL Total Bilirubin 0.5 0.1-1.0 MG/DL Aspartate Amino Transf (AST/SGOT) 18 5-34 U/L Alanine Aminotransferase (ALT/SGPT) 24 0-55 U/L Alkaline Phosphatase 75 40-136 U/L Total Protein 7.6 6.4-8.2 GM/DL Albumin 4.6 H 3.2-4.5 GM/DL Lipase 16 8-78 U/L Urine Opiates Screen NEGATIVE NEGATIVE Urine Oxycodone Screen NEGATIVE NEGATIVE Urine Methadone Screen NEGATIVE NEGATIVE Urine Propoxyphene Screen NEGATIVE NEGATIVE Urine Barbiturates Screen NEGATIVE NEGATIVE Ur Tricyclic Antidepressants Screen NEGATIVE NEGATIVE Urine Phencyclidine Screen NEGATIVE NEGATIVE Urine Amphetamines Screen NEGATIVE NEGATIVE Urine Methamphetamines Screen NEGATIVE NEGATIVE Urine Benzodiazepines Screen NEGATIVE NEGATIVE Urine Cocaine Screen NEGATIVE NEGATIVE Urine Cannabinoids Screen POSITIVE H NEGATIVE My Orders Orders - MIL HIGHTOWER APRN Cbc With Automated Diff (04/06/19 11:49) Comprehensive Metabolic Panel (04/06/19 11:49) Ua Culture If Indicated (04/06/19 11:49) Drug Screen Stat (Urine) (04/06/19 11:49) Lipase (04/06/19 11:49) Ed Iv/Invasive Line Start (04/06/19 11:49) Ondansetron Injection (Zofran Injectio (04/06/19 12:00) Fentanyl Injection (Sublimaze Injection (04/06/19 12:00) Lactated Ringers (Lr 1000 Ml Iv Solution (04/06/19 12:00) Antacid Suspension (Mylanta Suspension (04/06/19 12:00) Lidocaine 2% Viscous 15 Ml (Xylocaine Vi (04/06/19 12:00) Ct Abdomen/Pelvis W (04/06/19 11:51) Medications Given in ED Current Medications Medications Dose Ordered Sig/Sharon Route Start Time Stop Time Status Last Admin Dose Admin Al Hydrox/Mg Hydrox/Simethicone 30 ml ONCE ONCE PO 04/06/19 12:00 04/06/19 12:01 DC 04/06/19 12:24 30 ML Fentanyl Citrate 50 mcg ONCE ONCE IVP 04/06/19 12:00 04/06/19 12:01 DC 04/06/19 12:24 50 MCG Lidocaine HCl 10 ml ONCE ONCE PO 04/06/19 12:00 04/06/19 12:01 DC 04/06/19 12:24 10 ML Ondansetron HCl 8 mg ONCE ONCE IVP 04/06/19 12:00 04/06/19 12:01 DC 04/06/19 12:19 8 MG Vital Signs/I&O 04/06/19 11:44 Temp 98.5 Pulse 73 Resp 22 B/P (MAP) 129/93 (105) Pulse Ox 99 O2 Delivery Room Air Departure Impression Primary Impression: Epigastric pain Disposition: HOME, SELF-CARE Condition: Stable Departure-Patient Inst. Decision time for Depature: 12:57 Referrals: CHRISTINA KIRBY MD (PCP/Family) Primary Care Physician Patient Instructions: Acute Abdomen (Belly Pain) Add. Discharge Instructions: 1. Return to ER for any concerns 2. Follow-up with your doctor next week 3. Next step would be a hepatobiliary scan and possibly upper GI endoscopy. He should use [id number] Pepcid one tablet twice daily to reduce stomach acid. MIL HIGHTOWER APRN Apr 06, 2019 11:58
[2019-04-06] MEDS ORDERED: ANTACID SUSP 30 ML UDC (MYLANTA) PO ONE (12:00)
[2019-04-06] MEDS ORDERED: ONDANSETRON 4 MG/2 ML (SDV) Z0FRAN IVP ONE (12:00)
[2019-04-06] MEDS ORDERED: LIDOCAINE 2% VISCOUS 15 ML UDC PO ONE (12:00)
[2019-04-06] MEDS ORDERED: fentaNYL INJECTION 100 MCG/2 ML AMP IVP ONE (12:00)
[2019-04-06] MEDS ORDERED: LACTATED RINGERS 1,000 ML IV SCH (12:00)
[2019-04-06 12:05] LABS: BACTERIA,URINE TRACE /HPF; SQUAMOUS EPITHELIAL CELL,UR RARE /HPF
[2019-04-06 12:11] LABS: AMPHETAMINE SCREEN, URINE NEGATIVE (NEGATIVE); BARBITURATE SCREEN URINE NEGATIVE (NEGATIVE); BENZODIAZEPINES SCREEN URINE NEGATIVE (NEGATIVE); CANNABINOID SCREEN, URINE POSITIVE (NEGATIVE); COCAINE SCREEN URINE NEGATIVE (NEGATIVE); METHADONE STAT NEGATIVE (NEGATIVE); METHAMPHETAMINE SCREEN URINE S NEGATIVE (NEGATIVE); OPIATE SCREEN URINE NEGATIVE (NEGATIVE); OXYCODONE STAT NEGATIVE (NEGATIVE); PROPOXYPHENE STAT NEGATIVE (NEGATIVE); TRICYCLIC ANTIDEPRESSANTS SCRE NEGATIVE (NEGATIVE)
[2019-04-06 12:17] LABS: ALANINE AMINOTRANSFERASE 24 U/L (0-55); ALBUMIN 4.6 GM/DL (3.2-4.5); ALKALINE PHOSPHATASE 75 U/L (40-136); BILIRUBIN,TOTAL 0.5 MG/DL (0.1-1.0); BUN/CREATININE RATIO 14; CALCIUM 9.6 MG/DL (8.5-10.1); CARBON DIOXIDE 21 MMOL/L (21-32); CHLORIDE 108 MMOL/L (98-107); CREATININE SERUM 0.79 MG/DL (0.60-1.30); GFR ESTIMATED > 60; GLUCOSE 95 MG/DL (70-105); LIPASE 16 U/L (8-78); SODIUM 139 MMOL/L (135-145); TOTAL PROTEIN 7.6 GM/DL (6.4-8.2)
--- NOTE | 2019-04-06 13:05 | Diagnostic Imaging Report ---
PROCEDURE: CT abdomen and pelvis with contrast. TECHNIQUE: Multiple contiguous axial images were obtained through the abdomen and pelvis after administration of intravenous contrast. Auto Exposure Controls were utilized during the CT exam to meet ALARA standards for radiation dose reduction. INDICATION: Right-sided pain. FINDINGS: The appendix is well-visualized and is normal. Gallbladder unremarkable. Liver and bile ducts unremarkable. Spleen, adrenals, pancreas unremarkable. Unobstructed kidneys appeared normal. There is no small or large bowel obstruction. There is no ascites, abscess, hematoma or fluid collection. No abdominal wall defect or fluid collection. No hernia identified. The lung bases and the osseous structures appeared nonacute. IMPRESSION: Normal appendix, unobstructed urinary tracts, no inflammatory process, fluid collection or acute-appearing abnormalities. Dictated by: Dictated on workstation # [id number]
[2019-04-06 13:47] VITALS: BP 113/62
== END 2019-04-06 13:47 | disposition home or self-care (01) ==
LOC: EDUNIT# 11:40 → ER 11:41
DX: R10.13 Epigastric pain (principal); Z88.0 Allergy status to penicillin; Z77.22 Contact with and (suspected) exposure to environmental tobacco smoke (acute) (chronic); Z90.89 Acquired absence of other organs
CPT/HCPCS: 36415; 74177; 80053; 80306; 81000; 83690; 85025

== ENCOUNTER 2020-05-24 09:08 | Emergency (ER) | payer SELFPAY ==
[~2020-05-24] VITALS: Ht 167.7 cm; Wt 85.4 kg
[2020-05-24] MEDS ORDERED: NS IV 1000 ML 1,000 ML IV SCH (09:47)
[2020-05-24 09:55] LABS: BASOPHILS # (AUTO) 0.1 10^3/uL (0.0-0.1); BASOPHILS % (AUTO) 1 % (0-10); BILIRUBIN,URINE NEGATIVE (NEGATIVE); CLARITY,URINE CLEAR; COLOR,URINE YELLOW; EOSINOPHILS # (AUTO) 0.3 10^3/uL (0.0-0.3); EOSINOPHILS % (AUTO) 3 % (0-10); GLUCOSE, URINE (UA) NEGATIVE (NEGATIVE); HEMATOCRIT 45 % (40-54); HEMOGLOBIN 14.9 G/DL (13.3-17.7); KETONES,URINE NEGATIVE (NEGATIVE); LEUKOCYTE ESTERASE ,URINE NEGATIVE (NEGATIVE); LYMPHOCYTES # (AUTO) 2.7 X 10^3 (1.0-4.0); LYMPHOCYTES % (AUTO) 28 % (12-44); MEAN CORPUSCULAR HEMOGLOBIN 30 PG (25-34); MEAN CORPUSCULAR HGB CONC 33 G/DL (32-36); MEAN CORPUSCULAR VOLUME 92 FL (80-99); MEAN PLATELET VOLUME 10.4 FL (7.4-10.4); MONOCYTES # (AUTO) 0.5 X 10^3 (0.0-1.0); MONOCYTES % (AUTO) 5 % (0-12); NEUTROPHILS % (AUTO) 63 % (42-75); NITRITE,URINE NEGATIVE (NEGATIVE); PLATELET COUNT 247 10^3/uL (130-400); PROTEIN,URINE NEGATIVE (NEGATIVE); RED CELL DISTRIBUTION WIDTH 14.3 % (10.0-14.5); WHITE BLOOD COUNT 9.6 10^3/uL (4.3-11.0)
[2020-05-24] MEDS ORDERED: fentaNYL INJECTION 100 MCG/2 ML AMP IVP ONE (10:00)
[2020-05-24 10:07] LABS: ALANINE AMINOTRANSFERASE 18 U/L (0-55); ALKALINE PHOSPHATASE 68 U/L (40-136); BILIRUBIN,TOTAL 0.2 MG/DL (0.1-1.0); BUN/CREATININE RATIO 17; CALCIUM 8.8 MG/DL (8.5-10.1); CARBON DIOXIDE 17 MMOL/L (21-32); CHLORIDE 108 MMOL/L (98-107); CREATININE SERUM 0.77 MG/DL (0.60-1.30); GFR ESTIMATED > 60; GLUCOSE 107 MG/DL (70-105); POTASSIUM 4.6 MMOL/L (3.6-5.0); SODIUM 138 MMOL/L (135-145); TOTAL PROTEIN 7.7 GM/DL (6.4-8.2)
[2020-05-24 10:08] LABS: BACTERIA,URINE TRACE /HPF; SQUAMOUS EPITHELIAL CELL,UR RARE /HPF; WBC,URINE RARE /HPF
--- NOTE | 2020-05-24 10:29 | NUR ---
TO ROOM PATIENT REPORTS THAT PAIN NOT BETTER AFTER MEDS DR NOTIFIED.
[2020-05-24 10:34] LABS: ERYTHROCYTE SEDIMENTATION RATE 3 MM/HR (0-15)
[2020-05-24] MEDS ORDERED: morphine INJ 10 MG/ML 1ML (SYR OR VIAL) IVP STA (10:36)
[2020-05-24] MEDS ORDERED: FAMOTIDINE 20MG/2ML IV (PEPCID) IV STA (10:39)
[2020-05-24] MEDS ORDERED: ANTACID SUSP 30 ML UDC (MYLANTA) PO ONE (10:45)
[2020-05-24] MEDS ORDERED: LIDOCAINE 2% VISCOUS 15 ML UDC PO ONE (10:45)
[2020-05-24] MEDS ORDERED: ONDANSETRON 4 MG/2 ML (SDV) Z0FRAN IVP ONE (10:45)
--- NOTE | 2020-05-24 10:47 | ED Abdominal Pain ---
General Chief Complaint: Abdominal/GI Problems Stated Complaint: ABDOMINAL PAIN Nursing Triage Note: AMB TO ROOM C/O OF EPIGSTRIC PAIN WAS DX WITH IRRITABLE BOWEL SAW DR COLIN LAST YEAR WANTED. TO DO UPPER AND LOWE GI BUT DECLINED. Sepsis Screen: No Definite Risk Source of Information: Patient, Old Records Exam Limitations: No Limitations History of Present Illness Date Seen by Provider: May 24, 2020 Time Seen by Provider: 09:12 Initial Comments This 29-year-old man presents to the emergency room with generalized abdominal pain more intense in the epigastric region. He reports having very sharp pains when he has bowel movements and he does not get any relief after the bowel movement. Stools have been soft. He has been having IBS-like symptoms for at least a year. He has seen Dr. Colin for this and anticipates endoscopy in the near future. He recently filled out his financial assistance paperwork. He has been taking numerous GI medications including Protonix, omeprazole, dicyclomine, Phenergan, and Zofran. He does get relief from the nausea but states he does not get any relief from the pain using these medications. Nursing staff got the impression he has been noncompliant with his medications but he reports to me that he has been taking his medications. He reports loss of appetite as well. Pain has been worse this morning. He reports frequently feeling urgency to have a bowel movement but does not always produce one when this happens. Patient also complained of erectile dysfunction. Allergies and Home Medications Allergies Coded Allergies: Penicillins (Verified Allergy, Severe, 11/27/13) Home Medications Doxycycline Hyclate 100 Mg Tablet, 100 MG PO BID Prescribed by: ALTON LEVY on 05/12/18916 Hyoscyamine Sulfate 0.125 Mg Tab.subl, 1-2 TAB SL Q4H PRN for CRAMPS Prescribed by: SAM GARZA on 05/24/20 132 Promethazine HCl 25 Mg Tablet, 25 MG PO Q8H PRN for NAUSEA/VOMITING Prescribed by: ALTON LEVY on 05/12/18916 Sucralfate 1 Gm Tablet, 1 GM PO QID Crush and/or dissolve in 5-10 ML water to make a slurry. Take 30 min before meals and bedtime Prescribed by: SAM GARZA on 05/24/20 1328 Tramadol HCl 50 Mg Tablet, 50 MG PO Q6H PRN for PAIN-BREAKTHROUGH Prescribed by: SAM GARZA on 05/24/20 1329 Patient Home Medication List Home Medication List Reviewed: Yes Review of Systems Review of Systems Constitutional: no symptoms reported EENTM: No Symptoms Reported Respiratory: No Symptoms Reported Cardiovascular: No Symptoms Reported Gastrointestinal: See HPI Genitourinary: No Symptoms Reported Musculoskeletal: no symptoms reported Skin: no symptoms reported Psychiatric/Neurological: No Symptoms Reported Endocrine: No Symptoms Reported Hematologic/Lymphatic: No Symptoms Reported Past Ueuknxz-Vtxcob-Feegdo Hx Past Med/Social Hx: Reviewed Nursing Past Med/Soc Hx Patient Social History Alcohol Use: Denies Use Recreational Drug Use: No Smoking Status: Current Everyday Smoker Type Used: Cigarettes 2nd Hand Smoke Exposure: Yes Recent Foreign Travel: No Contact w/Someone Who Travel: No Recent Infectious Disease Expo: No Recent Hopitalizations: No Immunizations Up To Date Tetanus Booster (TDap): More than 5yrs Seasonal Allergies Seasonal Allergies: No Past Medical History Surgeries: Yes (nose) Adenoidectomy, Tonsillectomy Respiratory: No Cardiac: No Neurological: No Reproductive Disorders: No Sexually Transmitted Disease: No HIV/AIDS: No Genitourinary: No Gastrointestinal: Yes Irritable Bowel Musculoskeletal: Yes (knee problems) Endocrine: No HEENT: No Loss of Vision: Denies Hearing Impairment: Denies Cancer: No Psychosocial: No Integumentary: No Blood Disorders: No Adverse Reaction/Blood Tranf: No Family Medical History No Pertinent Family Hx Physical Exam Vital Signs Vital Signs - First Documented 05/24/20 09:14 Temp 36.9 Pulse 70 Resp 18 B/P (MAP) 141/113 (122) Pulse Ox 98 O2 Delivery Room Air Capillary Refill : Less Than 3 Seconds Height/Weight/BMI Height: 5'6.00" Weight: 193lbs. oz. 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, no motor/sensory deficits, alert, normal mood/affect, oriented x 3 Skin: normal color, warm/dry Progress/Results/Core Measures Results/Orders Lab Results Laboratory Tests Test 05/24/20 09:20 Range/Units White Blood Count 9.6 4.3-11.0 10^3/uL Red Blood Count 4.90 4.35-5.85 10^6/uL Hemoglobin 14.9 13.3-17.7 G/DL Hematocrit 45 40-54 % Mean Corpuscular Volume 92 80-99 FL Mean Corpuscular Hemoglobin 30 25-34 PG Mean Corpuscular Hemoglobin Concent 33 32-36 G/DL Red Cell Distribution Width 14.3 10.0-14.5 % Platelet Count 247 130-400 10^3/uL Mean Platelet Volume 10.4 7.4-10.4 FL Neutrophils (%) (Auto) 63 42-75 % Lymphocytes (%) (Auto) 28 12-44 % Monocytes (%) (Auto) 5 0-12 % Eosinophils (%) (Auto) 3 0-10 % Basophils (%) (Auto) 1 0-10 % Neutrophils # (Auto) 6.0 1.8-7.8 X 10^3 Lymphocytes # (Auto) 2.7 1.0-4.0 X 10^3 Monocytes # (Auto) 0.5 0.0-1.0 X 10^3 Eosinophils # (Auto) 0.3 0.0-0.3 10^3/uL Basophils # (Auto) 0.1 0.0-0.1 10^3/uL Erythrocyte Sedimentation Rate 3 0-15 MM/HR Urine Color YELLOW Urine Clarity CLEAR Urine pH 8.0 5-9 Urine Specific [place] 1.020 1.016-1.022 Urine Protein NEGATIVE NEGATIVE Urine Glucose (UA) NEGATIVE NEGATIVE Urine Ketones NEGATIVE NEGATIVE Urine Nitrite NEGATIVE NEGATIVE Urine Bilirubin NEGATIVE NEGATIVE Urine Urobilinogen 0.2 < = 1.0 MG/DL Urine Leukocyte Esterase NEGATIVE NEGATIVE Urine RBC (Auto) NEGATIVE NEGATIVE Urine RBC NONE /HPF Urine WBC RARE /HPF Urine Squamous Epithelial Cells RARE /HPF Urine Crystals NONE /LPF Urine Bacteria TRACE /HPF Urine Casts NONE /LPF Urine Mucus NEGATIVE /LPF Urine Culture Indicated NO Sodium Level 138 135-145 MMOL/L Potassium Level 4.6 3.6-5.0 MMOL/L Chloride Level 108 H 98-107 MMOL/L Carbon Dioxide Level 17 L 21-32 MMOL/L Anion Gap 13 5-14 MMOL/L Blood Urea Nitrogen 13 7-18 MG/DL Creatinine 0.77 0.60-1.30 MG/DL Estimat Glomerular Filtration Rate > 60 BUN/Creatinine Ratio 17 Glucose Level 107 H 70-105 MG/DL Calcium Level 8.8 8.5-10.1 MG/DL Corrected Calcium 8.8 8.5-10.1 MG/DL Total Bilirubin 0.2 0.1-1.0 MG/DL Aspartate Amino Transf (AST/SGOT) 21 5-34 U/L Alanine Aminotransferase (ALT/SGPT) 18 0-55 U/L Alkaline Phosphatase 68 40-136 U/L C-Reactive Protein High Sensitivity 0.58 H 0.00-0.50 MG/DL Total Protein 7.7 6.4-8.2 GM/DL Albumin 4.0 3.2-4.5 GM/DL Lipase 19 8-78 U/L Urine Opiates Screen NEGATIVE NEGATIVE Urine Oxycodone Screen NEGATIVE NEGATIVE Urine Methadone Screen NEGATIVE NEGATIVE Urine Propoxyphene Screen NEGATIVE NEGATIVE Urine Barbiturates Screen NEGATIVE NEGATIVE Ur Tricyclic Antidepressants Screen NEGATIVE NEGATIVE Urine Phencyclidine Screen NEGATIVE NEGATIVE Urine Amphetamines Screen NEGATIVE NEGATIVE Urine Methamphetamines Screen NEGATIVE NEGATIVE Urine Benzodiazepines Screen NEGATIVE NEGATIVE Urine Cocaine Screen NEGATIVE NEGATIVE Urine Cannabinoids Screen POSITIVE H NEGATIVE My Orders Orders - SAM VELASQUEZ MD Ua Culture If Indicated (05/24/20 09:12) Cbc With Automated Diff (05/24/20 09:47) Comprehensive Metabolic Panel (05/24/20 09:47) Hs C Reactive Protein (05/24/20 09:47) Erythrocyte Sedimentation Rate (05/24/20 09:47) Ed Iv/Invasive Line Start (05/24/20 09:47) Ns Iv 1000 Ml (Sodium Chloride 0.9%) (05/24/20 09:47) Fentanyl Injection (Sublimaze Injection (05/24/20 10:00) Lipase (05/24/20 10:36) Morphine Injection (Morphine Injection (05/24/20 10:36) Ondansetron Injection (Zofran Injectio (05/24/20 10:45) Lidocaine 2% Viscous 15 Ml (Xylocaine Vi (05/24/20 10:45) Antacid Suspension (Mylanta Suspension (05/24/20 10:45) Famotidine Injection (Pepcid Injection) (05/24/20 10:39) Us Gallbladder [id number] (05/24/20 11:21) Drug Screen Stat (Urine) (05/24/20 11:33) Medications Given in ED Current Medications Medications Dose Ordered Sig/Sharon Route Start Time Stop Time Status Last Admin Dose Admin Al Hydrox/Mg Hydrox/Simethicone 30 ml ONCE ONCE PO 05/24/20 10:45 05/24/20 10:46 DC 05/24/20 10:47 30 ML Fentanyl Citrate 50 mcg ONCE ONCE IVP 05/24/20 10:00 05/24/20 10:01 DC 05/24/20 10:04 50 MCG Lidocaine HCl 15 ml ONCE ONCE PO 05/24/20 10:45 05/24/20 10:46 DC 05/24/20 10:47 15 ML Ondansetron HCl 4 mg ONCE ONCE IVP 05/24/20 10:45 05/24/20 10:46 DC 05/24/20 10:45 4 MG Vital Signs/I&O 05/24/20 05/24/20 09:14 13:41 Temp 36.9 Pulse 70 59 Resp 18 18 B/P (MAP) 141/113 (122) 130/81 Pulse Ox 98 96 O2 Delivery Room Air Room Air Blood Pressure Mean: 122 Progress Progress Note #1: Time: 10:47 Progress Note Lab workup thus far has been unremarkable. Lipase is pending. Patient was reexamined and found to have most of his tenderness in the epigastric region. Fentanyl was not effective for treating his pain. We will try Pepcid and a GI cocktail. We can discuss imaging if this does not improve his pain. Progress Note #2: Time: 10:58 Progress Note It was noted from patient's prior records that he tested positive for marijuana when he was here for similar symptoms last summer. I asked him about his current marijuana use. He reports he has not used marijuana in over a month. Progress Note #3: Progress Note GB US was negative. Patient was dismissed to outpatient follow-up. See discharge instruction for review of plan of care. Diagnostic Imaging Diagonstic Imaging: Ultrasound Plain Films/CT/US/NM/MRI: abdomen Comments NAME: ROBI BRAVO [facility] REC#: [id number] PT STATUS: DEP ER : 1990 PHYSICIAN: SAM VELASQUEZ MD ADMIT DATE: 05/24/20/ER Signed Date of Exam:05/24/20 US GALLBLADDER [id number] PROCEDURE: US Gallbladder. TECHNIQUE: Multiple real-time grayscale images were obtained over the right upper quadrant in various projections. INDICATION: Epigastric pain with nausea and vomiting. FINDINGS: The liver is normal in size at 15.5 cm. No discrete liver mass is detected. The portal vein is patent and shows normal direction of flow. Gallbladder is without stones or sludge. No wall thickening or pericholecystic fluid is identified. Extrahepatic bile duct is obscured, but no definite biliary ductal dilatation is seen. The pancreas is mostly obscured by bowel gas. Aorta is obscured. IVC is patent. Right kidney is without calculi or hydronephrosis. There is no ascites. IMPRESSION: No evidence of cholelithiasis or acute cholecystitis. Dictated by: Dictated on workstation # [id number] Dict: 05/24/20 1321 Trans: 05/24/20 1532 [id number] Interpreted by: DIANA CHILDERS MD Electronically signed by: DIANA CHILDERS MD 05/24/20 1532 Reviewed: Reviewed by Me Departure Impression Primary Impression: Abdominal pain Qualified Codes: R10.84 - Generalized abdominal pain Additional Impressions: Nausea and vomiting Qualified Codes: R11.2 - Nausea with vomiting, unspecified Erectile dysfunction Qualified Codes: N52.9 - Male erectile dysfunction, unspecified Disposition: 01 HOME, SELF-CARE Condition: Improved Departure-Patient Inst. Decision time for Depature: 13:25 Referrals: CHRISTINA KIRBY MD (PCP/Family) Primary Care Physician Patient Instructions: Clear Liquid Diet, Severe Abdominal Pain Add. Discharge Instructions: Adhere to a strictly clear liquid diet (noncarbonated) over the next [address] Colin's office as soon as possible to explain your situation and expedite your endoscopy studies. You may try Levsin (hyoscyamine) for cramping as an alternative to the dicyclomine. Continue with an antacid medication such as your Protonix (pantoprazole) or Prilosec (omeprazole). You may continue using promethazine (Phenergan) for nausea and vomiting. Follow-up with your primary care provider as soon as possible as well. Please discuss your erectile dysfunction in the primary care setting. For pain try Tylenol (acetaminophen) up to 1000 mg every 6 hours as needed. Use Ultram (tramadol) for pain not controlled by Tylenol. Work toward quitting smoking as completely and has rapidly as possible. Seek assistance from your primary care provider if needed. Return to care if you have any further problems or concerns. All discharge instructions reviewed with patient and/or family. Voiced understanding. Scripts Tramadol HCl (Ultram) 50 Mg Tablet 50 MG PO Q6H PRN for PAIN-BREAKTHROUGH, #10 TAB Prov: SAM VELASQUEZ MD 05/24/20 Hyoscyamine Sulfate (Levsin-Sl) 0.125 Mg Tab.subl 1-2 TAB SL Q4H PRN for CRAMPS, #10 TAB 0 Refills Prov: SAM VELASQUEZ MD 05/24/20 Sucralfate (Carafate) 1 Gm Tablet 1 GM PO QID, #120 TAB Crush and/or dissolve in 5-10 ML water to make a slurry. Take 30 min before meals and bedtime Prov: SAM VELASQUEZ MD 05/24/20 Work/School Note: Work Release Form Date Seen in the Emergency Department: May 24, 2020 Return to Work: May 25, 2020 Restrictions: No Restrictions Copy Copies To 1: GREGG COLIN DO Copies To 2: ZEN ROCKWELL DO SAM VELASQUEZ MD May 24, 2020 10:47
--- NOTE | 2020-05-24 10:50 | NUR ---
WILL HOLD MORPHINE TILL AFTER OTHER MEDS GIVEN TO SEE HOW HE DOES WITH THEM.
--- NOTE | 2020-05-24 11:20 | NUR ---
AMB TO BATHROOM
[2020-05-24 11:49] LABS: AMPHETAMINE SCREEN, URINE NEGATIVE (NEGATIVE); BARBITURATE SCREEN URINE NEGATIVE (NEGATIVE); BENZODIAZEPINES SCREEN URINE NEGATIVE (NEGATIVE); CANNABINOID SCREEN, URINE POSITIVE (NEGATIVE); COCAINE SCREEN URINE NEGATIVE (NEGATIVE); METHADONE STAT NEGATIVE (NEGATIVE); METHAMPHETAMINE SCREEN URINE S NEGATIVE (NEGATIVE); OPIATE SCREEN URINE NEGATIVE (NEGATIVE); OXYCODONE STAT NEGATIVE (NEGATIVE); PROPOXYPHENE STAT NEGATIVE (NEGATIVE); TRICYCLIC ANTIDEPRESSANTS SCRE NEGATIVE (NEGATIVE)
--- NOTE | 2020-05-24 13:27 | Diagnostic Imaging Report ---
PROCEDURE: US Gallbladder. TECHNIQUE: Multiple real-time grayscale images were obtained over the right upper quadrant in various projections. INDICATION: Epigastric pain with nausea and vomiting. FINDINGS: The liver is normal in size at 15.5 cm. No discrete liver mass is detected. The portal vein is patent and shows normal direction of flow. Gallbladder is without stones or sludge. No wall thickening or pericholecystic fluid is identified. Extrahepatic bile duct is obscured, but no definite biliary ductal dilatation is seen. The pancreas is mostly obscured by bowel gas. Aorta is obscured. IVC is patent. Right kidney is without calculi or hydronephrosis. There is no ascites. IMPRESSION: No evidence of cholelithiasis or acute cholecystitis. Dictated by: Dictated on workstation # [id number]
[2020-05-24] MEDS ORDERED: SUCR1TAB36 PO (13:28)
[2020-05-24] MEDS ORDERED: HYOS0.1283 SL (13:28)
[2020-05-24] MEDS ORDERED: TRAM-42 PO (13:28)
[2020-05-24 13:41] VITALS: BP 130/81
== END 2020-05-24 13:41 | disposition home or self-care (01) ==
LOC: EDUNIT# 09:08 → ER 09:10
DX: R10.84 Generalized abdominal pain (principal); R11.2 Nausea with vomiting, unspecified; N52.9 Male erectile dysfunction, unspecified; K58.9 Irritable bowel syndrome, unspecified; F17.210 Nicotine dependence, cigarettes, uncomplicated; Z88.0 Allergy status to penicillin
CPT/HCPCS: 36415; 76705; 80053; 80306; 81000; 83690; 85025; 85652; 86141

== ENCOUNTER 2021-04-05 19:57 | Emergency (ER) | payer SELFPAY ==
[~2021-04-05] VITALS: Ht 167.7 cm; Wt 75.0 kg
[~2021-04-05 19:57] MED LIST changes: -CLIN300C11 PO; +CLIN300C12 PO; +HYOS0.1283 SL; +SUCR1TAB36 PO; +TRAM-42 PO
[2021-04-05] MEDS ORDERED: ORPHENADRINE 60 MG/2 ML (NORFLEX) AMP (ED ONLY) IM ONE (20:15)
[2021-04-05] MEDS ORDERED: KETOROLAC 60 MG/2 ML VIAL IM ONE (20:15)
--- NOTE | 2021-04-05 20:26 | ED Headache ---
General Stated Complaint: MIGRAINE Source: patient, family Exam Limitations: no limitations History of Present Illness Date Seen by Provider: Apr 05, 2021 Time Seen by Provider: 20:05 Initial Comments Patient is a 30-year-old male who presents to the emergency department today with a chief complaint of suboccipital headache, off and on over the course of t he last month severity up to 10. He has been taking Tylenol and ibuprofen periodically for the headache with minimal relief of symptoms. Patient also describes concomitant left arm tingling/numbness and a subjective feeling of weakness. He states this is off and on with his headache. He states that his vision gets a little bit blurry with headache. He denies double vision. No recent fevers, chills, cough or congestion,. He has had some nausea with headaches without vomiting. No diarrhea or urinary complaints. No rashes, joints swollen. Patient states periodically he wakes up in the morning with a headache that is severe and sometimes after his 13-hour shifts he develops a headache. He has seen [facility] for his headaches and was told to take Tylenol and ibuprofen. All other review of systems reviewed and negative except as stated above. Timing/Duration: episodic Severity/Quality: severe, achy Location: occipital Prior Headaches/Recent Trauma: frequent headaches Modifying Factors: worse with movement Associated Symptoms: denies symptoms Allergies and Home Medications Allergies Coded Allergies: Penicillins (Verified Allergy, Severe, 11/27/13) Home Medications Cyclobenzaprine HCl 10 Mg Tablet, 10 MG PO TID PRN for muscle spasm/ tension headache Prescribed by: LESLIE GUDINO on 04/05/212057 Doxycycline Hyclate 100 Mg Tablet, 100 MG PO BID Prescribed by: ALTON LEVY on 05/12/18 09 Hyoscyamine Sulfate 0.125 Mg Tab.subl, 1-2 TAB SL Q4H PRN for CRAMPS Prescribed by: SAM GARZA on 05/24/20 1328 Promethazine HCl 25 Mg Tablet, 25 MG PO Q8H PRN for NAUSEA/VOMITING Prescribed by: ALTON LEVY on 05/12/18 0917 Sucralfate 1 Gm Tablet, 1 GM PO QID Crush and/or dissolve in 5-10 ML water to make a slurry. Take 30 min before meals and bedtime Prescribed by: SAM GARZA on 05/24/20 1328 Tramadol HCl 50 Mg Tablet, 50 MG PO Q6H PRN for PAIN-BREAKTHROUGH Prescribed by: SAM GARZA on 05/24/20 1329 Patient Home Medication List Home Medication List Reviewed: Yes Review of Systems Review of Systems Constitutional: see HPI Eyes: Blurred Vision Ears, Nose, Mouth, Throat: no symptoms reported Respiratory: no symptoms reported Cardiovascular: no symptoms reported Gastrointestinal: nausea Musculoskeletal: other (Left arm, entire arm tingling and numb episodic) Skin: no symptoms reported Psychiatric/Neurological: No Symptoms Reported All Other Systems Reviewed Negative Unless Noted: Yes Past Cgfwtpl-Qspzgv-Ghaueu Hx Patient Social History Type Used: Cigarettes 2nd Hand Smoke Exposure: Yes Recent Hopitalizations: No Immunizations Up To Date Tetanus Booster (TDap): More than 5yrs Seasonal Allergies Seasonal Allergies: No Past Medical History Surgeries: Yes (nose) Adenoidectomy, Tonsillectomy Respiratory: No Cardiac: No Neurological: No Reproductive Disorders: No Sexually Transmitted Disease: No HIV/AIDS: No Genitourinary: No Gastrointestinal: Yes Irritable Bowel Musculoskeletal: Yes (knee problems) Endocrine: No HEENT: No Loss of Vision: Denies Hearing Impairment: Denies Cancer: No Psychosocial: No Integumentary: No Blood Disorders: No Adverse Reaction/Blood Tranf: No Family Medical History No Pertinent Family Hx Physical Exam Vital Signs Vital Signs - First Documented 04/05/21 20:06 Temp 37.0 Pulse 86 Resp 16 B/P (MAP) 121/82 (95) Pulse Ox 97 O2 Delivery Room Air Capillary Refill : Height, Weight, BMI Height: 5'6.00" Weight: 193lbs. oz. [id number]; 30.00 BMI Method:Stated General Appearance: WD/WN, no apparent distress HEENT: PERRL/EOMI, normal ENT inspection Neck: full range of motion, supple, normal inspection Cardiovascular: regular rate, rhythm Respiratory: lungs clear, normal breath sounds, no respiratory distress, no accessory muscle use Extremities: normal range of motion, non-tender, normal inspection Psychiatric: alert, oriented x 3 Crainal Nerves: normal hearing, normal speech, PERRL Motor/Sensory: no motor deficit, sensory deficit ("numb and tingly" left arm) Skin: normal color, warm/dry Progress/Results/Core Measures Results/Orders My Orders Orders - LESLIE GUDINO MD Ct Head Wo (04/05/21 20:13) Ketorolac Injection (Toradol Injection) (04/05/21 20:15) Orphenadrine Inj (Ed Only) (Norflex Inje (04/05/21 20:15) Medications Given in ED Current Medications Medications Dose Ordered Sig/Sharon Route Start Time Stop Time Status Last Admin Dose Admin Ketorolac Tromethamine 60 mg ONCE ONCE IM 04/05/21 20:15 04/05/21 20:16 DC 04/05/21 20:39 60 MG Orphenadrine Citrate 60 mg ONCE ONCE IM 04/05/21 20:15 04/05/21 20:16 DC 04/05/21 20:39 60 MG Vital Signs/I&O 04/05/21 20:06 Temp 37.0 Pulse 86 Resp 16 B/P (MAP) 121/82 (95) Pulse Ox 97 O2 Delivery Room Air Progress Progress Note : Time: 20:54 Progress Note Patient is feeling improvement in his headache after Toradol and Norflex. He still has some tingling in his left upper extremity. I advised the patient to follow-up with [facility] regarding this. He may have a nerve impingement. They may want to do some imaging of his cervical spine at a later date. At this time patient does not demonstrate any radiculopathy/weakness. Patient is advised to take [id number]-[id number] naproxen, 2 pills in the morning and 2 pills at night with food for the next 3 to 5 days. He is advised to use heat and ice to the base of his neck for muscle spasm and pain. I am giving him a prescription for some muscle relaxers to have as needed for tension type headaches. He will be given a work note for today as he missed work secondary to his symptoms. Patient has no clinical or objective findings to warrant further testing from the emergency department. All questions are sought and answered. Patient is stable for discharge. Diagnostic Imaging Diagonstic Imaging: CT Plain Films/CT/US/NM/MRI: head Comments [facility], [place] NAME: LAWRENCE BRAVOYamileth Mederos MED REC#: [id number] PT STATUS: REG ER : 1990 PHYSICIAN: LESLIE GUDINO MD ADMIT DATE: 04/05/21/ER Draft Date of Exam:04/05/21 CT HEAD WO PROCEDURE: CT head without contrast. TECHNIQUE: Multiple contiguous axial images were obtained through the brain without the use of intravenous contrast. Auto Exposure Controls were utilized during the CT exam to meet ALARA standards for radiation dose reduction. INDICATION: Severe headache x 3 months. Left arm tingling and weakness. COMPARISON: CT head without contrast 11/27/2013. FINDINGS: No CT evidence of a territorial infarction. No intracranial hemorrhage, mass effect, hydrocephalus or extra-axial fluid collection. Osseous structures are intact. Paranasal sinuses are unremarkable, where seen. Bilateral mastoid effusions are similar to the 2013 exam. IMPRESSION: No acute intracranial CT finding. Dictated on workstation # [id number] Dict: 04/05/212026 Trans: 04/05/212030 [facility] [id number] Interpreted by: SEBLE COUGHLIN MD Electronically signed by: Departure Impression Primary Impression: Tension type headache Qualified Codes: G44.209 - Tension-type headache, unspecified, not intractable Additional Impression: Paresthesia Disposition: HOME, SELF-CARE Condition: Stable Departure-Patient Inst. Decision time for Depature: 20:56 Referrals: CHRISTINA KIRBY MD (PCP/Family) Primary Care Physician Patient Instructions: Tension Headache Add. Discharge Instructions: Alternate heat and ice to your neck to help relieve muscle spasm. I have given you a prescription for Flexeril to take every 8 hours as needed for muscle spasm and pain. You can take xzke-azw-xcywwua naproxen or Aleve 2 pills in the morning and 2 pills at night for your headaches. Always take this medication with food. Your head CT was normal today. Please follow-up with [facility] for further evaluation of the tingling in your left arm. Scripts Cyclobenzaprine HCl (Cyclobenzaprine HCl) 10 Mg Tablet 10 MG PO TID PRN for muscle spasm/ tension headache, #15 TAB Prov: LESLIE GUDINO MD 04/05/21 Work/School Note: Work Release Form Date Seen in the Emergency Department: Apr 05, 2021 Return to Work: Apr 06, 2021 Other Restrictions Listed Below: off work 6/19 due to illness Copy Copies To 1: CHRISTINA KIRBY MD, KATHRYN M MD Apr 05, 2021 20:25
--- NOTE | 2021-04-05 20:32 | Diagnostic Imaging Report ---
PROCEDURE: CT head without contrast. TECHNIQUE: Multiple contiguous axial images were obtained through the brain without the use of intravenous contrast. Auto Exposure Controls were utilized during the CT exam to meet ALARA standards for radiation dose reduction. INDICATION: Severe headache x 3 months. Left arm tingling and weakness. COMPARISON: CT head without contrast 11/27/2013. FINDINGS: No CT evidence of a territorial infarction. No intracranial hemorrhage, mass effect, hydrocephalus or extra-axial fluid collection. Osseous structures are intact. Paranasal sinuses are unremarkable, where seen. Bilateral mastoid effusions are similar to the 2013 exam. IMPRESSION: No acute intracranial CT finding. Dictated by: Dictated on workstation # [id number]
[2021-04-05] MEDS ORDERED: CYCL10TA9 PO (20:58)
[2021-04-05 21:04] VITALS: BP 119/76
== END 2021-04-05 21:04 | disposition home or self-care (01) ==
LOC: EDUNIT# 19:57 → ER 20:00
DX: G44.209 Tension-type headache, unspecified, not intractable (principal); R20.2 Paresthesia of skin; Z77.22 Contact with and (suspected) exposure to environmental tobacco smoke (acute) (chronic)
CPT/HCPCS: 70450

== ENCOUNTER 2021-05-19 20:49 | Emergency (ER) | payer SELFPAY ==
[~2021-05-19] VITALS: Ht 167 cm; Wt 79.0 kg
[~2021-05-19 20:49] MED LIST changes: +CYCL10TA9 PO
[2021-05-19 21:30] LABS: BASOPHILS # (AUTO) 0.1 10^3/uL (0.0-0.1); BASOPHILS % (AUTO) 1 % (0-10); EOSINOPHILS # (AUTO) 0.5 10^3/uL (0.0-0.3); EOSINOPHILS % (AUTO) 4 % (0-10); HEMATOCRIT 44 % (40-54); HEMOGLOBIN 14.8 g/dL (13.3-17.7); LYMPHOCYTES # (AUTO) 4.9 10^3/uL (1.0-4.0); LYMPHOCYTES % (AUTO) 37 % (12-44); MEAN CORPUSCULAR HEMOGLOBIN 32 pg (25-34); MEAN CORPUSCULAR HGB CONC 34 g/dL (32-36); MEAN CORPUSCULAR VOLUME 94 fL (80-99); MEAN PLATELET VOLUME 9.4 fL (9.0-12.2); MONOCYTES # (AUTO) 0.9 10^3/uL (0.0-1.0); MONOCYTES % (AUTO) 7 % (0-12); NEUTROPHILS # (AUTO) 6.9 10^3/uL (1.8-7.8); NEUTROPHILS % (AUTO) 52 % (42-75); PLATELET COUNT 260 10^3/uL (130-400); WHITE BLOOD COUNT 13.3 10^3/uL (4.3-11.0)
[2021-05-19 21:49] LABS: ALANINE AMINOTRANSFERASE 37 U/L (0-55); ALBUMIN 4.1 GM/DL (3.2-4.5); ALKALINE PHOSPHATASE 66 U/L (40-136); BILIRUBIN,TOTAL 0.2 MG/DL (0.1-1.0); BUN/CREATININE RATIO 13; CALCIUM 8.6 MG/DL (8.5-10.1); CARBON DIOXIDE 22 MMOL/L (21-32); CHLORIDE 105 MMOL/L (98-107); CREATININE SERUM 0.71 MG/DL (0.60-1.30); GFR ESTIMATED 129; GLUCOSE 74 MG/DL (70-105); LIPASE 99 U/L (8-78); POTASSIUM 3.6 MMOL/L (3.6-5.0); SODIUM 137 MMOL/L (135-145); TOTAL PROTEIN 7.4 GM/DL (6.4-8.2)
[2021-05-19 21:52] LABS: EOSINOPHILS % (MANUAL) 7 %; LYMPHOCYTES % (MANUAL) 30 %; MONOCYTES % (MANUAL) 15 %; NEUTROPHILS % (MANUAL) 48 %; RBC MORPH NORMAL
[2021-05-19] MEDS ORDERED: FAMOTIDINE 20MG/2ML IV (PEPCID) IV STA (22:08)
[2021-05-19] MEDS ORDERED: ONDANSETRON 4 MG/2 ML (SDV) Z0FRAN IVP ONE (22:15)
[2021-05-19] MEDS ORDERED: ANTACID SUSP 30 ML UDC (MYLANTA) PO ONE (22:15)
[2021-05-19] MEDS ORDERED: LIDOCAINE 2% VISCOUS 15 ML UDC PO ONE (22:15)
--- NOTE | 2021-05-19 22:27 | Diagnostic Imaging Report ---
INDICATION: Sharp stabbing chest pain x5 days. TECHNIQUE: Single view chest 9:37 PM. CORRELATION STUDY: 11/27/2013 FINDINGS: The heart size, mediastinal configuration and pulmonary vascularity are within normal limits. The lungs are clear with no consolidating infiltrate. There is no significant effusion or pneumothorax. IMPRESSION: 1. Negative appearing portable chest. Dictated by: Dictated on workstation # [id number]
[2021-05-19] MEDS ORDERED: IOHEXOL 350 MG/ML 100 ML (OMNIPAQUE 350) VIAL IV ONE (23:00)
[2021-05-19] MEDS ORDERED: CATHETER FLUSH 10 ML SYR IV PRN (23:00)
[2021-05-19] MEDS ORDERED: NS 100 ML (IVPB) BAG IV ONE (23:00)
[2021-05-19] MEDS ORDERED: HOLD METFORMIN - RECEIVED CONTRAST 20 ML VIAL IV SCH (23:00)
--- NOTE | 2021-05-19 23:19 | Diagnostic Imaging Report ---
PROCEDURE: CT abdomen and pelvis with contrast. TECHNIQUE: Multiple contiguous axial images were obtained through the abdomen and pelvis after administration of intravenous contrast. Auto Exposure Controls were utilized during the CT exam to meet ALARA standards for radiation dose reduction. All CT scans use one or more of the following dose optimizing techniques: automated exposure control, MA and/or KvP adjustment based on patient size and exam type or iterative reconstruction. INDICATION: 30-year-old male, abdominal pain. CORRELATION STUDY: 04/06/2019 FINDINGS: LOWER THORAX: Clear. LIVER: Moderate hepatic steatosis. GALLBLADDER: Present and unremarkable. No bile duct dilatation. SPLEEN: Unremarkable. PANCREAS: Unremarkable. ADRENAL GLANDS: Unremarkable. KIDNEYS: Normal configuration. No calcification or obstruction. ABDOMINAL AORTA: Nonaneurysmal. A few shotty aortocaval lymph nodes. GASTROINTESTINAL TRACT: No obstruction or inflammation. Normal appendix. URINARY BLADDER: Unremarkable. REPRODUCTIVE: Unremarkable. OSSEOUS STRUCTURES: No acute abnormality. OTHER: None. IMPRESSION: 1. Negative for acute abnormality of the abdomen or pelvis. Dictated by: Dictated on workstation # [id number]
[2021-05-19] MEDS ORDERED: ACHD5005 PO (23:27)
--- NOTE | 2021-05-19 23:28 | ED Abdominal Pain ---
General Chief Complaint: Chest Pain Stated Complaint: CHEST AND ABD PAIN Nursing Triage Note: PT REPORTS TO ED FOR CHEST PAIN X'S 5 DAYS. PT DESCRIBES IT A SHARP/STABBING PAIN, STATES IT HAPPENED AFTER WAKING UP. PAIN RADIATES TO ABDOMEN. PT AMB. TO ROOM 02 WITHOUT DIFFICULTY. Source of Information: Patient, Old Records Exam Limitations: No Limitations Allergies and Home Medications Allergies Coded Allergies: Penicillins (Verified Allergy, Severe, 11/27/13) Home Medications Cyclobenzaprine HCl 10 Mg Tablet, 10 MG PO TID PRN for muscle spasm/ tension headache Prescribed by: LESLIE UGDINO on 04/05/212057 Doxycycline Hyclate 100 Mg Tablet, 100 MG PO BID Prescribed by: ALTON LEVY on 05/12/18 0917 Hydrocodone/Acetaminophen 1 Each Tablet, 1 TAB PO Q4H PRN for PAIN-MODERATE (5- 7) Prescribed by: SAM GARZA on 05/19/21 2328 Hyoscyamine Sulfate 0.125 Mg Tab.subl, 1-2 TAB SL Q4H PRN for CRAMPS Prescribed by: SAM GARZA on 05/24/20 1328 Promethazine HCl 25 Mg Tablet, 25 MG PO Q8H PRN for NAUSEA/VOMITING Prescribed by: ALTON LEVY on 05/12/18 0917 Sucralfate 1 Gm Tablet, 1 GM PO QID Crush and/or dissolve in 5-10 ML water to make a slurry. Take 30 min before meals and bedtime Prescribed by: SAM GARZA on 05/24/20 1328 Tramadol HCl 50 Mg Tablet, 50 MG PO Q6H PRN for PAIN-BREAKTHROUGH Prescribed by: SAM GARZA on 05/24/20 1329 Past Ejvmqyy-Bxbyve-Uqxvet Hx Patient Social History Tobacco Use?: Yes Tobacco type used: Cigarettes Smoking Status: Current Everyday Smoker Substance use?: No Alcohol Use?: No Pt feels they are or have been: No Immunizations Up To Date Tetanus Booster (TDap): More than 5yrs Seasonal Allergies Seasonal Allergies: No Past Medical History Surgeries: Yes (nose) Adenoidectomy, Tonsillectomy Respiratory: No Cardiac: No Neurological: No Reproductive Disorders: No Sexually Transmitted Disease: No HIV/AIDS: No Genitourinary: No Gastrointestinal: Yes Irritable Bowel Musculoskeletal: Yes (knee problems) Endocrine: No HEENT: No Loss of Vision: Denies Hearing Impairment: Denies Cancer: No Psychosocial: No Integumentary: No Blood Disorders: No Adverse Reaction/Blood Tranf: No Family Medical History No Pertinent Family Hx Physical Exam Vital Signs Vital Signs - First Documented Capillary Refill : Less Than 3 Seconds Height/Weight/BMI Height: 5'6.00" Weight: 193lbs. oz. 87.323895ln; 28.00 BMI Method:Stated Progress/Results/Core Measures Results/Orders Lab Results Laboratory Tests Test 05/19/21 21:24 Range/Units White Blood Count 13.3 H 4.3-11.0 10^3/uL Red Blood Count 4.69 4.30-5.52 10^6/uL Hemoglobin 14.8 13.3-17.7 g/dL Hematocrit 44 40-54 % Mean Corpuscular Volume 94 80-99 fL Mean Corpuscular Hemoglobin 32 25-34 pg Mean Corpuscular Hemoglobin Concent 34 32-36 g/dL Red Cell Distribution Width 13.1 10.0-14.5 % Platelet Count 260 130-400 10^3/uL Mean Platelet Volume 9.4 9.0-12.2 fL Immature Granulocyte % (Auto) 0 % Neutrophils (%) (Auto) 52 42-75 % Lymphocytes (%) (Auto) 37 12-44 % Monocytes (%) (Auto) 7 0-12 % Eosinophils (%) (Auto) 4 0-10 % Basophils (%) (Auto) 1 0-10 % Neutrophils # (Auto) 6.9 1.8-7.8 10^3/uL Lymphocytes # (Auto) 4.9 H 1.0-4.0 10^3/uL Monocytes # (Auto) 0.9 0.0-1.0 10^3/uL Eosinophils # (Auto) 0.5 H 0.0-0.3 10^3/uL Basophils # (Auto) 0.1 0.0-0.1 10^3/uL Immature Granulocyte # (Auto) 0.1 0.0-0.1 10^3/uL Neutrophils % (Manual) 48 % Lymphocytes % (Manual) 30 % Monocytes % (Manual) 15 % Eosinophils % (Manual) 7 % Blood Morphology Comment NORMAL Sodium Level 137 135-145 MMOL/L Potassium Level 3.6 3.6-5.0 MMOL/L Chloride Level 105 98-107 MMOL/L Carbon Dioxide Level 22 21-32 MMOL/L Anion Gap 10 5-14 MMOL/L Blood Urea Nitrogen 9 7-18 MG/DL Creatinine 0.71 0.60-1.30 MG/DL Estimat Glomerular Filtration Rate 129 BUN/Creatinine Ratio 13 Glucose Level 74 70-105 MG/DL Calcium Level 8.6 8.5-10.1 MG/DL Corrected Calcium 8.5 8.5-10.1 MG/DL Total Bilirubin 0.2 0.1-1.0 MG/DL Aspartate Amino Transf (AST/SGOT) 21 5-34 U/L Alanine Aminotransferase (ALT/SGPT) 37 0-55 U/L Alkaline Phosphatase 66 40-136 U/L Troponin I < 0.028 <0.028 NG/ML Total Protein 7.4 6.4-8.2 GM/DL Albumin 4.1 3.2-4.5 GM/DL Lipase 99 H 8-78 U/L My Orders Orders - SAM VELASQUEZ MD Ondansetron Injection (Zofran Injectio (05/19/21 22:15) Lidocaine 2% Viscous 15 Ml (Xylocaine Vi (05/19/21 22:15) Antacid Suspension (Mylanta Suspension (05/19/21 22:15) Famotidine Injection (Pepcid Injection) (05/19/21 22:08) Ct Abdomen/Pelvis W (05/19/21 22:17) Iohexol Injection (Omnipaque 350 Mg/Ml 1 (05/19/21 23:00) Received Contrast (Hold Metformin- Contr (05/19/21 23:00) Sodium Chloride Flush (Catheter Flush Sy (05/19/21 23:00) Ns (Ivpb) (Sodium Chloride 0.9% Ivpb Bag (05/19/21 23:00) Hydrocodone/Apap 5/325 Tablet (Lortab 5 (05/19/21 23:30) Medications Given in ED Current Medications Medications Dose Ordered Sig/Sharon Route Start Time Stop Time Status Last Admin Dose Admin Acetaminophen/ Hydrocodone Bitart 1 ea ONCE ONCE PO 05/19/21 23:30 05/19/21 23:31 DC 05/19/21 23:30 1 EA Al Hydrox/Mg Hydrox/Simethicone 30 ml ONCE ONCE PO 05/19/21 22:15 05/19/21 22:16 DC 05/19/21 23:02 30 ML Iohexol 100 ml ONCE ONCE IV 05/19/21 23:00 05/19/21 23:01 DC 05/19/21 22:58 100 ML Lidocaine HCl 15 ml ONCE ONCE PO 05/19/21 22:15 05/19/21 22:16 DC 05/19/21 23:02 15 ML Ondansetron HCl 4 mg ONCE ONCE IVP 05/19/21 22:15 05/19/21 22:16 DC 05/19/21 23:02 4 MG Sodium Chloride 10 ml NEEDED PRN IV 05/19/21 23:00 05/20/21 03:08 DC 05/19/21 22:58 10 ML Sodium Chloride 100 ml ONCE ONCE IV 05/19/21 23:00 05/19/21 23:01 DC 05/19/21 22:58 80 ML Vital Signs/I&O 05/19/21 05/19/21 05/19/21 21:18 21:18 23:32 Temp 36.8 Pulse 74 78 Resp 16 20 B/P (MAP) 136/84 (101) 143/102 Pulse Ox 96 97 O2 Delivery Room Air Room Air Room Air Blood Pressure Mean: 101 Diagnostic Imaging Diagonstic Imaging: CT Plain Films/CT/US/NM/MRI: abdomen, pelvis Comments CT Abdomen with oral and IV contrast shows and pelvis stat rad report reviewed. No acute abnormalities appreciated. Departure Impression Primary Impression: Generalized abdominal pain Additional Impression: Chronic diarrhea Disposition: 01 HOME, SELF-CARE Condition: Improved Departure-Patient Inst. Decision time for Depature: 23:25 Referrals: [facility] (PCP/Family) Primary Care Physician Patient Instructions: Abdominal Pain, Adult ED Add. Discharge Instructions: Drink plenty of clear liquids. Stick to a noncarbonated clear liquid diet for the next 24 hours. Then gradually advance your diet with small quantities of bland food as tolerated. You may experiment with alternative diets such as a lactose-free or gluten-free diet as your stomach issues may relate to a sensitivity to lactose or gluten. Follow-up with Dr. Hewitt as soon as possible. His contact information is below. Restart Prilosec (omeprazole) 20 mg twice daily. Use hydrocodone as prescribed for pain. Call with questions or concerns. Return to the ER if you have worsening symptoms. All discharge instructions reviewed with patient and/or family. Voiced understanding. Scripts Hydrocodone/Acetaminophen (Hydrocodone-Acetamin 5-325 mg) 1 Each Tablet 1 TAB PO Q4H PRN for PAIN-MODERATE (5-7), #10 TAB Prov: SAM VELASQUEZ MD 05/19/21 SAM VELASQUEZ MD May 19, 2021 23:28
[2021-05-19] MEDS ORDERED: HYDROcodone/APAP 5 MG/325 MG (LORTAB) TAB PO ONE (23:30)
[2021-05-19 23:32] VITALS: BP 143/102
== END 2021-05-19 23:32 | disposition home or self-care (01) ==
LOC: EDUNIT# 20:49 → ER 20:50
DX: R10.84 Generalized abdominal pain (principal); R19.7 Diarrhea, unspecified; F17.210 Nicotine dependence, cigarettes, uncomplicated
CPT/HCPCS: 36415; 71045; 74177; 80053; 83690; 84484; 85007; 85027; 93005

== ENCOUNTER 2021-08-01 20:26 | Day surgery (SDC) | payer SELFPAY ==
[~2021-08-01] VITALS: Ht 182 cm; Wt 81.0 kg
[~2021-08-01 20:26] MED LIST changes: +ACHD5005 PO
[2021-08-01] MEDS ORDERED: fentaNYL INJ 100 MCG/2 ML AMP ONE (20:33)
[2021-08-01] MEDS ORDERED: ETOMIDATE IV SOLN 20 MG/10 ML VIAL ONE (20:33)
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
[2021-08-01 21:00] LABS: BASOPHILS # (AUTO) 0.1 10^3/uL (0.0-0.1); BASOPHILS % (AUTO) 1 % (0-10); EOSINOPHILS # (AUTO) 0.3 10^3/uL (0.0-0.3); EOSINOPHILS % (AUTO) 2 % (0-10); HEMATOCRIT 41 % (40-54); HEMOGLOBIN 13.7 g/dL (13.3-17.7); LYMPHOCYTES # (AUTO) 4.5 10^3/uL (1.0-4.0); LYMPHOCYTES % (AUTO) 34 % (12-44); MEAN CORPUSCULAR HEMOGLOBIN 31 pg (25-34); MEAN CORPUSCULAR HGB CONC 33 g/dL (32-36); MEAN CORPUSCULAR VOLUME 94 fL (80-99); MEAN PLATELET VOLUME 9.5 fL (9.0-12.2); MONOCYTES # (AUTO) 0.5 10^3/uL (0.0-1.0); MONOCYTES % (AUTO) 4 % (0-12); NEUTROPHILS # (AUTO) 7.8 10^3/uL (1.8-7.8); NEUTROPHILS % (AUTO) 59 % (42-75); PLATELET COUNT 330 10^3/uL (130-400); WHITE BLOOD COUNT 13.4 10^3/uL (4.3-11.0)
[2021-08-01] MEDS ORDERED: TETANUS,DIPTH,PERTUSS P/F (BOOSTRIX) 0.5 ML VIAL IM ONE (21:15)
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
[2021-08-01] MEDS ORDERED: morphine INJ 10 MG/ML 1ML (SYR OR VIAL) IVP STA (21:25)
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
[2021-08-01] MEDS ORDERED: ONDANSETRON 4 MG/2 ML (SDV) Z0FRAN IVP ONE (21:30)
[2021-08-01] MEDS ORDERED: NICOTINE 21 MG (NICODERM) PATCH TD ONE (22:00)
[2021-08-01 23:05] VITALS: BP 127/75
[2021-08-01] MEDS ORDERED: NS IV 1000 ML 1,000 ML ONE (23:15)
[2021-08-01] MEDS ORDERED: ONDANSETRON 4 MG/2 ML (SDV) Z0FRAN IV PRN (23:30)
[2021-08-01] MEDS ORDERED: NS IV 1000 ML 1,000 ML IV SCH (23:30)
[2021-08-01 23:53] VITALS: BP 127/75
[2021-08-01 23:54] VITALS: BP 139/78
[2021-08-02] VITALS (17 sets, daily range): BP systolic 118–141; BP diastolic 58–97
[2021-08-02] MEDS ORDERED: RT-ALBUTEROL SULF 2.5 MG/3 ML PRE-MIX VIAL INH PRN (00:15)
[2021-08-02] MEDS: morphine INJ 4 MG/ML 1 ML (VIAL/SYRINGE) IV PRN ×2 (02:38→06:34)
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
[2021-08-02] MEDS ORDERED: BUPIVACAINE 0.25% 30 ML (SENSORCAINE) VIAL ONE (07:12)
[2021-08-02] MEDS ORDERED: NEO/POLY/BAC (NEOSPORIN) OINT 15 GM TUBE ONE (07:12)
[2021-08-02] MEDS ORDERED: LACTATED RINGERS 1,000 ML IV PRN (07:30)
[2021-08-02] MEDS ORDERED: fentaNYL INJ 100 MCG/2 ML AMP ONE (07:35)
[2021-08-02] MEDS ORDERED: MIDAZOLAM 2 MG/2 ML (VERSED) VIAL ONE (07:36)
[2021-08-02] MEDS ORDERED: LIDOCAINE PF 2% 5 ML (XYLOCAINE) VIAL ONE (07:49)
[2021-08-02] MEDS ORDERED: ONDANSETRON 4 MG/2 ML (SDV) Z0FRAN ONE ×2 (07:49→08:30)
[2021-08-02] MEDS ORDERED: proPOfol 200 MG/20 ML (DIPRIVAN) VIAL IV ONE (07:49)
[2021-08-02] MEDS ORDERED: CLINDAMYCIN 900 MG/50 ML IVPB 50 ML IV ONE (08:00)
[2021-08-02] MEDS ORDERED: HYDROmorphone 2 MG/ML VIAL (DILAUDID) ONE ×2 (08:00→08:32)
[2021-08-02] MEDS ORDERED: MEPERIDINE (DEMEROL) INJ 50 MG/ML ONE (08:31)
[2021-08-02] MEDS ORDERED: morphine INJ 10 MG/ML 1ML (SYR OR VIAL) ONE (08:31)
[2021-08-02] MEDS ORDERED: morphine INJ 10 MG/ML 1ML (SYR OR VIAL) IVP ONE (09:15)
[2021-08-02] MEDS ORDERED: MEPERIDINE (DEMEROL) INJ 50 MG/ML IVP ONE (09:15)
[2021-08-02] MEDS ORDERED: HYDROmorphone 2 MG/ML VIAL (DILAUDID) IV ONE (09:15)
[2021-08-02] MEDS ORDERED: ONDANSETRON 4 MG/2 ML (SDV) Z0FRAN IVP PRN (09:15)
--- NOTE | 2021-08-02 09:18 | Diagnostic Imaging Report ---
INDICATION: Intraoperative ORIF EXAMINATION: Fluoroscopic evaluation of the lower extremity from 08/02/2021 FINDINGS: Multiple fluoroscopic images of the right lower extremity are provided. This is a limited intraoperative evaluation with a sideplate and multiple intervening screws along the distal fibula. Fracture site is in good anatomic alignment. Syndesmotic screws noted with screws through the medial malleolus also present. Osseous structures in good anatomic alignment. 49.4 seconds fluoroscopy time used. IMPRESSION: 1. Limited intraoperative evaluation please see separate surgical report. Dictated by: Dictated on workstation # [id number]
[2021-08-02] MEDS ORDERED: SEVOFLURANE (ULTANE) 15 ML INHAL SOLN ONE (09:33)
--- NOTE | 2021-08-02 09:55 | Operative Report - Ortho ---
Operative Report Surgeon (s)/[employer] (s) Surgeon ILA MELENDREZ MD [address] [employer] n/a Pre-Operative Diagnosis Right Trimalleolar Ankle Fracture and Right Ankle Syndesmotic Disruption Post-Operative Diagnosis same Operative Report Date of Procedure: Aug 02, 2021 Name of Procedure Performed: 1) Open Reduction and Internal Fixation of Right Trimalleolar Ankle Fracture 2) Open Reduction and Internal Fixation of Right Ankle Syndesmotic Disruption Description & Findings After obtaining informed consent and marking the patient, patient did receive intravenous antibiotics. Taken to the operating room and general anesthesia was induced. Surgical timeout was taken. The right lower extremity was prepped and draped in the usual sterile fashion. Attention was initially turned to the fibula fracture, incision was made centered over the fracture. Dissection was carried down to the fracture and a periosteal elevator was used to expose the fibula proximally and distally. The fracture was provisionally reduced using clamps. A 10 hole 1/3 tubular plate was selected and placed. A screw was placed distal to the fracture and then one proximal to the fracture. C-arm demonstrated good position of the plate with near anatomic reduction of the fracture. 2 additional screws were placed proximally. One additional screw distally. The last hole in the plate was then left empty for possible syndesmotic fixation. Attention was turned to the medial side. The medial malleolar fracture was in acceptable position. 2 wires were placed percutaneously through the medial malleolar fragment and across the fracture site. C-arm was used to confirm position of the wires. After drilling the distal cortex, 2 4.0 mm cannulated s crews were then placed over the wires. The anterior one measured 40 mm and the posterior one was 44 mm. Wires were removed. Attention was turned to the syndesmosis. Clamp was placed across the ankle and the syndesmotic disruption was reduced. The last hole of the fibular plate was used for the first syndesmotic screw. 3 cortices were drilled and a 42 mm screw was placed. Clamp was removed and a second 42 mm syndesmotic screw was placed just superiorly to wear the clamp had been. Final C-arm images were obtained in the AP, mortise, and lateral views and demonstrated appropriate reduction of the fractures and noted reduction of the posterior malleolar fragment which did not require fixation. Hardware was in good position. Images were transferred to PACS. Wounds were irrigated with normal saline. Closed with 0 vicryl, 3-0 vicryl, and a combination of 3-0 and 4-0 nylon. Wounds were injected with local anesthetic. Dressed with xeroform, 4x4s, ABD, cast padding, soft roll, posterior splint, and KULWINDER wrap. Patient tolerated the procedure well and was stable to the recovery room. Anesthesia Type General Estimated Blood Loss 25 mL Specimen(s) collected/removed None ILA MELENDREZ MD Aug 02, 2021 09:55
[2021-08-02] MEDS ORDERED: NALOXONE 0.4 MG/ML 1 ML (NARCAN) VIAL IV PRN (10:15)
[2021-08-02] MEDS ORDERED: OXC5T PO (10:19)
--- NOTE | 2021-08-02 10:22 | Discharge Inst-Simple/Standard ---
Discharge Inst-Standard Discharge Medications New, Converted or Re-Newed RX: Transmitted to Pharmacy Patient Instructions/Follow Up Plan of Care/Instructions/FU: F/U in [facility] with Dr. Tyler Garrett on 08/14/21; will need to call for appointment. Leave splint intact; keep it dry. No weightbearing on right leg; use crutches for assistance. Activity as Tolerated: No Discharge Diet: No Restrictions TYLER GARRETT MD Aug 02, 2021 10:22
[2021-08-02] MEDS ORDERED: CRUT1EAC7 MC (10:25)
--- NOTE | 2021-08-02 18:20 | Anesthesia-General Post-Op ---
General Patient Condition Mental Status/LOC: Same as Preop Cardiovascular: Satisfactory Nausea/Vomiting: Absent Respiratory: Satisfactory Pain: Controlled Complications: Absent Post Op Complications Complications None Follow Up Care/Instructions Patient Instructions None needed. Anesthesia/Patient Condition Patient Condition Patient is doing well, no complaints, stable vital signs, no apparent adverse anesthesia problems. No complications reported per nursing. NYLA ALLEN CRNA Aug 02, 2021 18:20
== END 2021-08-02 14:00 | disposition home or self-care (01) ==
LOC: EDUNIT# 20:26 → ER 20:28 → 4TH 21:42 → EDLOC 21:42 → UNDOADMIN 21:42 → SDC 21:42 → 4TH 21:42 → SDC 08-02 14:00 → UNDODISIN 08-02 14:00
PROVIDERS: ATTEND Orthopaedic Surgery
DX: S82.851A Displaced trimalleolar fracture of right lower leg, initial encounter for closed fracture (principal); K58.9 Irritable bowel syndrome, unspecified; S93.431A Sprain of tibiofibular ligament of right ankle, initial encounter; S82.831A Other fracture of upper and lower end of right fibula, initial encounter for closed fracture; S40.021A Contusion of right upper arm, initial encounter; V03.10XA Pedestrian on foot injured in collision with car, pick-up truck or van in traffic accident, initial encounter; F17.210 Nicotine dependence, cigarettes, uncomplicated; Z11.2 Encounter for screening for other bacterial diseases
CPT/HCPCS: 27822; 27829; 27842; 29515; 71045; 72170; 73590; 73610; 76000; 85025; 87081; 90471; 93041; 96374; 96375; 99291; C1713 ×6; C1769; 36415; 90715

== ENCOUNTER → 2021-08-14 | Outpatient (CLI) | payer SELFPAY ==
[~2021-08-14] MED LIST changes: +CLIN-144 PO; -CLIN300C12 PO; +CRUT1EAC7 MC; +OXC5T PO
== END ==
LOC: ORTHO 10:03
PROVIDERS: ATTEND Orthopaedic Surgery
DX: S82.851D Displaced trimalleolar fracture of right lower leg, subsequent encounter for closed fracture with routine healing (principal); X58.XXXD Exposure to other specified factors, subsequent encounter

== ENCOUNTER → 2021-09-04 | Outpatient (CLI) | payer SELFPAY ==
--- NOTE | 2021-09-04 10:50 | Diagnostic Imaging Report ---
INDICATION: Followup ankle fracture on the right. TIME OF EXAM: 10:25 AM 3 views of the right ankle were obtained. There is a lateral plate and numerous screws transfixing the distal fibular fracture. There are 2 partially threaded screws extending through the medial malleolus. There are also 2 fully threaded syndesmotic screws. Fracture of the distal fibula remains visible. Alignment is anatomic. The fracture of the medial malleolus is barely visible consistent with some healing. No new fractures seen. IMPRESSION: Postoperative changes to the right ankle, as described. Fracture lines do remain partially visible. Dictated by: Dictated on workstation # [id number]
== END ==
LOC: ORTHO 10:04
PROVIDERS: ATTEND Orthopaedic Surgery
DX: Z09 Encounter for follow-up examination after completed treatment for conditions other than malignant neoplasm (principal); S82.61XD Displaced fracture of lateral malleolus of right fibula, subsequent encounter for closed fracture with routine healing; Z98.890 Other specified postprocedural states; X58.XXXD Exposure to other specified factors, subsequent encounter
CPT/HCPCS: 73610

== ENCOUNTER → 2021-10-02 | Outpatient (CLI) | payer SELFPAY ==
[~2021-10-02] MED LIST changes: +CYCL10TA25 PO; -CYCL10TA9 PO
--- NOTE | 2021-10-02 11:14 | Diagnostic Imaging Report ---
INDICATION: Right ankle fracture, status post surgery. TIME OF EXAM: 10:42 a.m. COMPARISON: Correlation is made with prior ankle radiograph from 09/04/2021. FINDINGS: Lateral plate and numerous screws transfix the fracture of the fibula at the junction of the mid and distal third. There is some blurring of the fracture line consistent with some healing, although the fracture line does remain partly visible. Fibular hardware appears to be intact. There are two fully threaded syndesmotic screws. There are two partially threaded screws transfixing the medial malleolus. Medial malleolar fracture line remains very well visualized with questionable cortication, raising a question of nonunion. There is generalized demineralization at the right ankle. IMPRESSION: Postop changes to the right ankle. The fracture of the fibula appears to be healing, although fracture line remains visible. The fracture line of the medial malleolus remains very well defined and possibly corticated raising a question of nonunion. Dictated by: Dictated on workstation # [id number]
== END ==
LOC: ORTHO 10:08
PROVIDERS: ATTEND Orthopaedic Surgery
DX: S82.891D Other fracture of right lower leg, subsequent encounter for closed fracture with routine healing (principal); X58.XXXD Exposure to other specified factors, subsequent encounter
CPT/HCPCS: 73610

== ENCOUNTER 2021-10-20 05:36 | Outpatient (CLI) | payer SELFPAY ==
[~2021-10-20] VITALS: Ht 167.7 cm; Wt 81.0 kg
[2021-10-21] MEDS ORDERED: ACET-168 PO (11:11)
[2021-10-21] MEDS ORDERED: IBUP-2185 PO (11:11)
== END 2021-10-21 11:24 | disposition home or self-care (01) ==
LOC: PREOP 05:36
PROVIDERS: ATTEND Orthopaedic Surgery
DX: Z01.818 Encounter for other preprocedural examination (principal)

== ENCOUNTER 2021-10-27 05:54 | Day surgery (SDC) | payer SELFPAY ==
[2021-10-27] VITALS (12 sets, daily range): BP systolic 99–132; BP diastolic 51–97
[~2021-10-27] VITALS: Ht 167.7 cm; Wt 81.0 kg
[~2021-10-27 05:54] MED LIST changes: +ACET-168 PO; +IBUP-2185 PO
[2021-10-27] MEDS ORDERED: CLINDAMYCIN 600 MG/50 ML IVPB 50 ML IV ONE ×2 (06:15→06:58)
[2021-10-27] MEDS ORDERED: LACTATED RINGERS 1,000 ML IV PRN (06:15)
[2021-10-27] MEDS ORDERED: NEO/POLY/BAC (NEOSPORIN) OINT 15 GM TUBE ONE (07:04)
[2021-10-27] MEDS ORDERED: BUPIVACAINE 0.25% 30 ML (SENSORCAINE) VIAL ONE (07:04)
[2021-10-27] MEDS ORDERED: fentaNYL INJ 100 MCG/2 ML AMP ONE (07:07)
[2021-10-27] MEDS ORDERED: MIDAZOLAM 2 MG/2 ML (VERSED) VIAL ONE (07:07)
[2021-10-27] MEDS ORDERED: proPOfol 200 MG/20 ML (DIPRIVAN) VIAL IV ONE (07:07)
[2021-10-27] MEDS ORDERED: LIDOCAINE PF 2% 5 ML (XYLOCAINE) VIAL ONE (07:07)
[2021-10-27] MEDS ORDERED: ONDANSETRON 4 MG/2 ML (SDV) Z0FRAN ONE (07:07)
[2021-10-27] MEDS ORDERED: OXC5T PO (08:03)
--- NOTE | 2021-10-27 08:07 | Operative Report - Ortho ---
Operative Report Surgeon (s)/Household Refrigeration Mechanic (s) Surgeon ILA MELENDREZ MD Household Refrigeration Mechanic n/a Pre-Operative Diagnosis RIGHT ANKLE FX WITH RETAINED HARDWARE Post-Operative Diagnosis same Operative Report Date of Procedure: Oct 27, 2021 Name of Procedure Performed: Removal of Right Ankle Syndesmotic Screws Description & Findings After obtaining informed consent and marking the patient in the preoperative holding area, patient did receive antibiotics and was taken to the operating room. General anesthesia was induced. Surgical timeout was taken. The right lower extremity was prepped and draped in the usual sterile fashion. Incision was made over the distal aspect of the lateral scar. C-arm was used to localize the heads of the syndesmotic screws and they were removed using the appropriate screwdriver. Final C-arm images were obtained and transferred to PACS. Wounds were irrigated with normal saline. Closed with 3-0 nylon suture. Injected subcutaneously with local anesthetic and dressed with xeroform, 4x4s, Kerlix, and KULWINDER wrap. Patient tolerated the procedure well and was stable to the recovery room. Anesthesia Type General Estimated Blood Loss minimal Specimen(s) collected/removed None ILA MELENDREZ MD Oct 27, 2021 08:07
[2021-10-27] MEDS ORDERED: SEVOFLURANE (ULTANE) 15 ML INHAL SOLN ONE (08:24)
[2021-10-27] MEDS ORDERED: HYDROmorphone 2 MG/ML VIAL (DILAUDID) ONE (08:39)
--- NOTE | 2021-10-27 08:39 | Diagnostic Imaging Report ---
INDICATION: Fluoroscopy during right ankle surgery. Fluoroscopy was provided in the OR during ankle screw removal. 13 seconds of fluoroscopic time were utilized. Two images were obtained. Images demonstrate lateral plate and screws transfixing the distal fibula. There are 2 partially threaded screws transfixing the medial malleolus. IMPRESSION: Fluoroscopy during right ankle surgery. Dictated by: Dictated on workstation # [id number]
[2021-10-27] MEDS ORDERED: morphine INJ 10 MG/ML 1ML (SYR OR VIAL) IVP ONE (08:45)
[2021-10-27] MEDS ORDERED: MEPERIDINE (DEMEROL) INJ 50 MG/ML IVP ONE (08:45)
[2021-10-27] MEDS ORDERED: HYDROmorphone 2 MG/ML VIAL (DILAUDID) IV ONE (08:45)
[2021-10-27] MEDS ORDERED: ONDANSETRON 4 MG/2 ML (SDV) Z0FRAN IVP PRN (08:45)
--- NOTE | 2021-10-31 01:35 | Anesthesia-General Post-Op ---
General Significant Intra-Op Events Notes late entry from 10-27-21 at 0900 Patient Condition Mental Status/LOC: Same as Preop Cardiovascular: Satisfactory Nausea/Vomiting: Absent Respiratory: Satisfactory Pain: Controlled Complications: Absent Post Op Complications Complications None Follow Up Care/Instructions Patient Instructions None needed. Anesthesia/Patient Condition Patient Condition Patient is doing well, no complaints, stable vital signs, no apparent adverse anesthesia problems. No complications reported per nursing. NYLA ALLEN CRNA Oct 31, 2021 01:35
== END 2021-10-27 10:35 | disposition home or self-care (01) ==
LOC: SDC 05:54
PROVIDERS: ATTEND Orthopaedic Surgery
DX: Z47.2 Encounter for removal of internal fixation device (principal); J45.909 Unspecified asthma, uncomplicated; F17.210 Nicotine dependence, cigarettes, uncomplicated; Z79.899 Other long term (current) drug therapy; Z90.89 Acquired absence of other organs
CPT/HCPCS: 76000; 87081

== ENCOUNTER → 2021-11-13 | Outpatient (CLI) | payer SELFPAY | LOC: ORTHO 08:51 | PROVIDERS: ATTEND Orthopaedic Surgery | DX: Z47.89 Encounter for other orthopedic aftercare (principal) ==

== ENCOUNTER → 2021-12-11 | Outpatient (CLI) | payer MEDICAID | LOC: ORTHO 08:45 | PROVIDERS: ATTEND Orthopaedic Surgery | DX: Z47.89 Encounter for other orthopedic aftercare (principal) ==

== ENCOUNTER 2022-04-04 13:36 | Emergency (ER) | payer MEDICAID ==
[~2022-04-04] VITALS: Ht 167.7 cm; Wt 86.2 kg
[2022-04-04 13:45] VITALS: BP 147/99
--- NOTE | 2022-04-04 14:02 | ED Cough/URI ---
General Chief Complaint: Respiratory Problems Stated Complaint: HX ASTHMA/SOB Source: patient, family Exam Limitations: no limitations History of Present Illness Date Seen by Provider: Apr 04, 2022 Time Seen by Provider: 14:00 Initial Comments This is a 31-year-old male with history of asthma that presents to the emergency room for evaluation of shortness of breath. He has had symptoms since Wednesday and states that [facility] and was given prednisone and a Z-Duong and had a negative COVID test. He states that his symptoms have worsened since then and he is having a hard time breathing despite using an albuterol inhaler at home. Does currently use tobacco (cigarettes). He denies chest pain, fever, vomiting, abdominal pain Timing/Duration: week Severity/Quality: moderate Prior Episodes/Possible Cause: no prior episodes Modifying Factors: Improves With Activity, Improves With Albuterol Inhaler, Improves With Albuterol Nebulizer, Improves With Coughing Allergies and Home Medications Allergies Coded Allergies: Penicillins (Verified Allergy, Severe, 10/21/21) Patient Home Medication List Home Medication List Reviewed: Yes Acetaminophen (Acetaminophen Extra Strength) 500 Mg Tablet, 500 MG PO PRN, (Reported) Entered as Reported by: ESTHER FOSTER on 10/21/21 1111 Albuterol Sulfate (Proair Hfa) 1 Puff Puff, 2 PUFF IH Q4H Prescribed by: Trever Ricardo on 04/04/22 1445 Ibuprofen (Ibuprofen) 200 Mg Capsule, 200 MG PO PRN, (Reported) Entered as Reported by: ESTHER FOSTER on 10/21/21 1111 Oxycodone Hcl (Oxyir Tablet) 5 Mg Tab, 5 MG PO Q6H Prescribed by: ILA MELENDREZ MD on 10/27/21 0803 Promethazine/Dextromethorphan (Promethazine-Dm Syrup) 6.25 Mg-15 Mg/5 Ml Syrup, 5 ML PO Q6H PRN for COUGH Prescribed by: Trever Ricardo on 04/04/22 1445 Review of Systems Review of Systems Constitutional: malaise EENTM: nose congestion, throat pain Respiratory: cough, short of breath Cardiovascular: no symptoms reported Gastrointestinal: no symptoms reported Genitourinary: no symptoms reported Musculoskeletal: no symptoms reported Skin: no symptoms reported Past Qjykwim-Ecsqrc-Nbxyht Hx Patient Social History Tobacco Use?: Yes Tobacco type used: Cigarettes Smoking Status: Current Everyday Smoker Smokeless Tobacco Frequency: Never a User Use of E-Cig and/or Vaping dev: No Use of E-Cig and/or Vaping Loe: Never a User Substance use?: No Alcohol Use?: No Pt feels they are or have been: No Immunizations Up To Date Tetanus Booster (TDap): More than 5yrs First/Initial COVID19 Vaccinat: N/A Second COVID19 Vaccination Gunnar: N/A Third COVID19 Vaccination Date: N/A Seasonal Allergies Seasonal Allergies: No Past Medical History Surgeries: Yes (NOSE, TIB/FIB REPAIR, RT ANKLE) Adenoidectomy, Orthopedic, Tonsillectomy Respiratory: Yes (INHALER YEARS AGO) Asthma Currently Using CPAP: No Currently Using BIPAP: No Cardiac: No Neurological: No Reproductive Disorders: No Sexually Transmitted Disease: No HIV/AIDS: No Genitourinary: No Gastrointestinal: Yes Irritable Bowel Musculoskeletal: Yes (knee problems) Endocrine: No HEENT: No Loss of Vision: Denies Hearing Impairment: Denies Cancer: No Psychosocial: No Integumentary: No Blood Disorders: No Adverse Reaction/Blood Tranf: No Family Medical History No Pertinent Family Hx Physical Exam Vital Signs - First Documented 04/04/22 13:45 Temp 37.2 Pulse 89 Resp 19 B/P (MAP) 147/99 (115) O2 Delivery Room Air Capillary Refill : Height: 5'6.00" Weight: 193lbs. oz. [id number]; 28.80 BMI Method:Stated General Appearance: WD/WN, no apparent distress Eyes: Bilateral Eye Normal Inspection, Bilateral Eye PERRL HEENT: PERRL/EOMI, TMs normal, pharynx normal Neck: non-tender, full range of motion Respiratory: chest non-tender, wheezing, expiration Cardiovascular: no edema, tachycardia Gastrointestinal: non tender Neurologic/Psychiatric: rotating equipment specialist II-XII nml as tested, oriented x 3 Skin: normal color Procedures/Interventions Patient Education: Explained Benefits, Explained Risks, Pt. Ack. Understanding Breath Sounds per Auscultation: Wheezes Heart Sounds per Auscultation: Regular Airway Exam: Mouth opens >2 fingers, Neck Full Range of Motion, Visulation of Uvula Progress/Results/Core Measures Suspected Sepsis SIRS Temperature: Pulse: Respiratory Rate: Blood Pressure / Mean: Results/Orders My Orders Orders - MATTHIAS RICARDO Dexamethasone Injection (Decadron Injec (04/04/22 14:00) Chest Pa/Lat (2 View) (04/04/22 13:59) Medications Given in ED Current Medications Medications Dose Ordered Sig/Sharon Route Start Time Stop Time Status Last Admin Dose Admin Dexamethasone Sodium Phosphate 8 mg ONCE ONCE IM 04/04/22 14:00 04/04/22 14:01 DC 04/04/22 14:07 8 MG Vital Signs/I&O 04/04/22 04/04/22 13:45 13:45 Temp 37.2 Pulse 89 Resp 19 B/P (MAP) 147/99 (115) O2 Delivery Room Air Room Air Capillary Refill : Departure Communication (PCP) Patient is afebrile, nontoxic and in no distress. Chest x-ray consistent with asthma but no obvious pneumonia or pleural effusion. Patient already had a negative COVID-19 test we did not repeat it today. We did give him a higher dose of steroids and will provide an inhaler and cough medication. Counseled about tobacco use while ill. No evidence or suspicion of pneumonia, myocarditis, pericarditis, pneumothorax, hemothorax or other emergent condition. Impression Primary Impression: Acute bronchitis Additional Impression: Acute asthma exacerbation Disposition: HOME, SELF-CARE Condition: Stable Departure-Patient Inst. Referrals: [facility] [place] (PCP/Family) Primary Care Physician Patient Instructions: Acute Bronchitis, Oral Steroid Medicines Add. Discharge Instructions: Please use the inhaler and cough medication at the same time as they have a synergistic effect for control of symptoms. Continue the steroids and antibiotics that you are prescribed. All discharge instructions reviewed with patient and/or family. Voiced understanding. Scripts Promethazine/Dextromethorphan (Promethazine-Dm Syrup) 6.25 Mg-15 Mg/5 Ml Syrup 5 ML PO Q6H PRN for COUGH for 7 Days, #240 ML Prov: MATTHIAS RICARDO 04/04/22 Albuterol Sulfate (PROAIR HFA) 1 Puff Puff 2 PUFF IH Q4H for Cough for 7 Days, #1 EA 1 PUFF = 90 MCG Prov: MATTHIAS RICARDO 04/04/22 Work/School Note: Work Release Form Date Seen in the Emergency Department: Apr 04, 2022 Return to Work: Apr 06, 2022 MATTHIAS RICARDO Apr 04, 2022 14:02
--- NOTE | 2022-04-04 14:25 | Diagnostic Imaging Report ---
Indication: Asthmatic patient with shortness of . FINDINGS: Lung volumes are symmetric and unremarkable. There is some peribronchial cuffing and thickening of central airways which can be seen in asthma exacerbation. No consolidating pneumonia. No pneumothorax. No pneumomediastinum and no failure pattern. IMPRESSION: Some peribronchial cuffing and thickening of the central airways but no focal consolidation or acute pleural pathology. Dictated by: Dictated on workstation # [id number]
[2022-04-04] MEDS ORDERED: D-ME473S11 PO (14:45)
[2022-04-04] MEDS ORDERED: RT-ALBUINH IH (14:45)
== END 2022-04-04 14:51 | disposition home or self-care (01) ==
LOC: EDUNIT# 13:36 → ER 13:37
DX: J45.901 Unspecified asthma with (acute) exacerbation (principal); F17.210 Nicotine dependence, cigarettes, uncomplicated
CPT/HCPCS: 71046

== ENCOUNTER 2022-08-05 16:52 | Emergency (ER) | payer MEDICAID ==
[~2022-08-05] VITALS: Ht 167 cm; Wt 86.1 kg
[~2022-08-05 16:52] MED LIST changes: +D-ME473S11 PO; +RT-ALBUINH IH
--- NOTE | 2022-08-05 17:26 | ED Abdominal Pain ---
General Chief Complaint: Abdominal/GI Problems Stated Complaint: DIARRHEA,NAUSEA,GENERAL WEAKNESS,FATIGUE Nursing Triage Note: ARRIVED VIA AMB TO ROOM 08 WITH COMPLAINTS OF DIARRHEA AND NAUSEA X2 DAYS. Source of Information: Patient Exam Limitations: No Limitations History of Present Illness Date Seen by Provider: Aug 05, 2022 Time Seen by Provider: 17:26 Initial Comments This is a 31-year-old male who presented to the ER via POV with complaints of nausea, diarrhea x2 days. He does have a history of IBS and is no longer taking any medications for this. States that his symptoms are similar to when he had COVID in the past. Allergies and Home Medications Allergies Coded Allergies: Penicillins (Verified Allergy, Severe, 10/21/21) Patient Home Medication List Dicyclomine HCl (Dicyclomine HCl) 20 Mg Tablet, 20 MG PO Q6H Prescribed by: MARGIE GOODWIN on 08/05/221851 Ondansetron (Ondansetron Odt) 4 Mg Tab.rapdis, 4 MG PO Q6H PRN for NAUSEA/VOMITING Prescribed by: MARGIE GOODWIN on 08/05/22 185 Discontinued Medications Acetaminophen (Acetaminophen Extra Strength) 500 Mg Tablet, 500 MG PO PRN, (Reported) Discontinued Reason: No Longer Taking Entered as Reported by: ESTHER FOSTER on 10/21/21 1111 Last Action: Discontinued Albuterol Sulfate (Proair Hfa) 1 Puff Puff, 2 PUFF IH Q4H Discontinued Reason: No Longer Taking Prescribed by: Trever Pena on 04/04/22 1445 Last Action: Discontinued Ibuprofen (Ibuprofen) 200 Mg Capsule, 200 MG PO PRN, (Reported) Discontinued Reason: No Longer Taking Entered as Reported by: ESTHER FOSTER on 10/21/21 1111 Last Action: Discontinued Oxycodone Hcl (Oxyir Tablet) 5 Mg Tab, 5 MG PO Q6H Discontinued Reason: No Longer Taking Prescribed by: ILA MELENDREZ MD on 10/27/21 0803 Last Action: Discontinued Promethazine/Dextromethorphan (Promethazine-Dm Syrup) 6.25 Mg-15 Mg/5 Ml Syrup, 5 ML PO Q6H PRN for COUGH Discontinued Reason: No Longer Taking Prescribed by: Trever Pena on 04/04/22 1445 Last Action: Discontinued Past Eyutkzl-Retrbg-Vaffpy Hx Patient Social History Tobacco Use?: Yes Smoking Status: Current Everyday Smoker Substance use?: No Alcohol Use?: No Immunizations Up To Date Tetanus Booster (TDap): More than 5yrs First/Initial COVID19 Vaccinat: N/A Second COVID19 Vaccination Gunnar: N/A Third COVID19 Vaccination Date: N/A Seasonal Allergies Seasonal Allergies: No Past Medical History Surgeries: Yes (NOSE, TIB/FIB REPAIR, RT ANKLE) Adenoidectomy, Orthopedic, Tonsillectomy Respiratory: Yes (INHALER YEARS AGO) Asthma Currently Using CPAP: No Currently Using BIPAP: No Cardiac: No Neurological: No Reproductive Disorders: No Sexually Transmitted Disease: No HIV/AIDS: No Genitourinary: No Gastrointestinal: Yes Irritable Bowel Musculoskeletal: Yes (knee problems) Endocrine: No HEENT: No Loss of Vision: Denies Hearing Impairment: Denies Cancer: No Psychosocial: No Integumentary: No Blood Disorders: No Adverse Reaction/Blood Tranf: No Family Medical History No Pertinent Family Hx Physical Exam Vital Signs Vital Signs - First Documented 08/05/22 17:00 Temp 37.3 Pulse 70 Resp 16 B/P (MAP) 149/98 (115) Pulse Ox 98 O2 Delivery Room Air Capillary Refill : Less Than 3 Seconds Height/Weight/BMI Height: 5'6.00" Weight: 193lbs. oz. 87.810909ug; 30.00 BMI Method:Stated Procedures/Interventions Patient Education: Explained Benefits, Explained Risks, Pt. Ack. Understanding Breath Sounds per Auscultation: Wheezes Heart Sounds per Auscultation: Regular Airway Exam: Mouth opens >2 fingers, Neck Full Range of Motion, Visulation of Uvula Progress/Results/Core Measures Results/Orders Lab Results Laboratory Tests Test 08/05/22 17:13 08/05/22 17:55 Range/Units Influenza Type A (RT-PCR) Not Detected Not Detecte Influenza Type B (RT-PCR) Not Detected Not Detecte SARS-CoV-2 RNA (RT-PCR) Not Detected Not Detecte White Blood Count 10.0 4.3-11.0 10^3/uL Red Blood Count 5.10 4.30-5.52 10^6/uL Hemoglobin 15.5 13.3-17.7 g/dL Hematocrit 46 40-54 % Mean Corpuscular Volume 91 80-99 fL Mean Corpuscular Hemoglobin 30 25-34 pg Mean Corpuscular Hemoglobin Concent 34 32-36 g/dL Red Cell Distribution Width 13.0 10.0-14.5 % Platelet Count 253 130-400 10^3/uL Mean Platelet Volume 9.6 9.0-12.2 fL Immature Granulocyte % (Auto) 0 % Neutrophils (%) (Auto) 54 42-75 % Lymphocytes (%) (Auto) 36 12-44 % Monocytes (%) (Auto) 5 0-12 % Eosinophils (%) (Auto) 3 0-10 % Basophils (%) (Auto) 1 0-10 % Neutrophils # (Auto) 5.4 1.8-7.8 10^3/uL Lymphocytes # (Auto) 3.6 1.0-4.0 10^3/uL Monocytes # (Auto) 0.5 0.0-1.0 10^3/uL Eosinophils # (Auto) 0.3 0.0-0.3 10^3/uL Basophils # (Auto) 0.1 0.0-0.1 10^3/uL Immature Granulocyte # (Auto) 0.0 0.0-0.1 10^3/uL Sodium Level 136 135-145 MMOL/L Potassium Level 3.6 3.6-5.0 MMOL/L Chloride Level 104 98-107 MMOL/L Carbon Dioxide Level 23 21-32 MMOL/L Anion Gap 9 5-14 MMOL/L Blood Urea Nitrogen 7 7-18 MG/DL Creatinine 0.69 0.60-1.30 MG/DL Estimat Glomerular Filtration Rate 126 BUN/Creatinine Ratio 10 Glucose Level 87 70-105 MG/DL Calcium Level 9.2 8.5-10.1 MG/DL Corrected Calcium 8.9 8.5-10.1 MG/DL Total Bilirubin 0.4 0.1-1.0 MG/DL Aspartate Amino Transf (AST/SGOT) 25 5-34 U/L Alanine Aminotransferase (ALT/SGPT) 37 0-55 U/L Alkaline Phosphatase 75 40-136 U/L Total Protein 7.7 6.4-8.2 GM/DL Albumin 4.4 3.2-4.5 GM/DL My Orders Orders - MARGIE GOODWIN CHASER HELPER Covid 19 Inhouse Test (08/05/22 17:11) Influenza A And B By Pcr (08/05/22 17:11) Cbc With Automated Diff (08/05/22 17:47) Comprehensive Metabolic Panel (08/05/22 17:47) Ct Abdomen/Pelvis W (08/05/22 17:47) Fentanyl Inj (Sublimaze Injection) (08/05/22 18:00) Ondansetron Injection (Zofran Injectio (08/05/22 18:00) Iohexol Injection (Omnipaque 350 Mg/Ml 1 (08/05/22 18:30) Received Contrast (Hold Metformin- Contr (08/05/22 18:30) Sodium Chloride Flush (Catheter Flush Sy (08/05/22 18:30) Ns (Ivpb) (Sodium Chloride 0.9% Ivpb Bag (08/05/22 18:30) Medications Given in ED Current Medications Medications Dose Ordered Sig/Sharon Route Start Time Stop Time Status Last Admin Dose Admin Fentanyl Citrate 50 mcg ONCE ONCE IVP 08/05/22 18:00 08/05/22 18:01 DC 08/05/22 18:04 50 MCG Ondansetron HCl 4 mg ONCE ONCE IVP 08/05/22 18:00 08/05/22 18:01 DC 08/05/22 18:04 4 MG Vital Signs/I&O 08/05/22 17:00 Temp 37.3 Pulse 70 Resp 16 B/P (MAP) 149/98 (115) Pulse Ox 98 O2 Delivery Room Air Blood Pressure Mean: 115 Departure Impression Primary Impression: IBS (irritable bowel syndrome) Disposition: 01 HOME, SELF-CARE Condition: Improved Departure-Patient Inst. Decision time for Depature: 18:51 Referrals: [facility] (PCP/Family) Primary Care Physician Patient Instructions: Irritable Bowel Syndrome Add. Discharge Instructions: Plan: 1. Start with clear liquids and advance slowly as tolerated. 2. May use Zofran 4mg every 6 hours as needed for nausea/vomiting. 3. Take Dicyclomine as directed. 4. Follow up with [facility] for persistent symptoms. 5. Return for any new, concerning, or worsening symptoms. All discharge instructions reviewed with patient and/or family. Voiced understanding. Scripts Ondansetron (Ondansetron Odt) 4 Mg Tab.rapdis 4 MG PO Q6H PRN for NAUSEA/VOMITING, #8 TAB 0 Refills Prov: MARGIE GOODWIN CHASER HELPER 08/05/22 Dicyclomine HCl (Dicyclomine HCl) 20 Mg Tablet 20 MG PO Q6H, #90 TAB 0 Refills Prov: MARGIE GOODWIN APRN 08/05/22 Work/School Note: Work Release Form Date Seen in the Emergency Department: Aug 05, 2022 Return to Work: Aug 07, 2022 Restrictions: No Restrictions MARGIE GOODWIN CHASER HELPER Aug 05, 2022 17:26
[2022-08-05] MEDS ORDERED: ONDANSETRON 4 MG/2 ML (SDV) Z0FRAN IVP ONE (18:00)
[2022-08-05] MEDS ORDERED: fentaNYL INJ 100 MCG/2 ML AMP IVP ONE (18:00)
[2022-08-05 18:05] LABS: BASOPHILS # (AUTO) 0.1 10^3/uL (0.0-0.1); BASOPHILS % (AUTO) 1 % (0-10); EOSINOPHILS # (AUTO) 0.3 10^3/uL (0.0-0.3); EOSINOPHILS % (AUTO) 3 % (0-10); HEMATOCRIT 46 % (40-54); HEMOGLOBIN 15.5 g/dL (13.3-17.7); LYMPHOCYTES # (AUTO) 3.6 10^3/uL (1.0-4.0); LYMPHOCYTES % (AUTO) 36 % (12-44); MEAN CORPUSCULAR HEMOGLOBIN 30 pg (25-34); MEAN CORPUSCULAR HGB CONC 34 g/dL (32-36); MEAN CORPUSCULAR VOLUME 91 fL (80-99); MEAN PLATELET VOLUME 9.6 fL (9.0-12.2); MONOCYTES # (AUTO) 0.5 10^3/uL (0.0-1.0); MONOCYTES % (AUTO) 5 % (0-12); NEUTROPHILS # (AUTO) 5.4 10^3/uL (1.8-7.8); NEUTROPHILS % (AUTO) 54 % (42-75); PLATELET COUNT 253 10^3/uL (130-400)
[2022-08-05 18:23] LABS: ALBUMIN 4.4 GM/DL (3.2-4.5); POTASSIUM 3.6 MMOL/L (3.6-5.0)
[2022-08-05 18:24] LABS: CALCIUM 9.2 MG/DL (8.5-10.1)
[2022-08-05 18:25] LABS: TOTAL PROTEIN 7.7 GM/DL (6.4-8.2)
[2022-08-05 18:27] LABS: BILIRUBIN,TOTAL 0.4 MG/DL (0.1-1.0)
[2022-08-05 18:29] LABS: CREATININE SERUM 0.69 MG/DL (0.60-1.30)
[2022-08-05] MEDS ORDERED: IOHEXOL 350 MG/ML 100 ML (OMNIPAQUE 350) VIAL IV ONE (18:30)
[2022-08-05] MEDS ORDERED: NS 100 ML (IVPB) BAG IV ONE (18:30)
[2022-08-05] MEDS ORDERED: CATHETER FLUSH 10 ML SYR IV PRN (18:30)
[2022-08-05] MEDS ORDERED: HOLD METFORMIN - RECEIVED CONTRAST 20 ML VIAL IV SCH (18:30)
--- NOTE | 2022-08-05 18:35 | Diagnostic Imaging Report ---
EXAMINATION: CT abdomen and pelvis with intravenous contrast. TECHNIQUE: Multiple contiguous axial images were obtained through the abdomen and pelvis after the uneventful administration of intravenous contrast. All CT scans use one or more of the following dose optimizing techniques: automated exposure control, MA and/or KvP adjustment based on patient size and exam type or iterative reconstruction. HISTORY: Abdominal pain and diarrhea. COMPARISON: 05/19/2021. FINDINGS: Limited views of the lower thorax are unremarkable. The liver is normal without focal lesion. There is no biliary ductal dilation. Gallbladder is normal. Pancreas is normal. Spleen is normal. Adrenal glands are normal. The kidneys are normal. There is no hydronephrosis. Urinary bladder is normal. Bowel is normal in caliber without obstruction or inflammation. The appendix is normal. No free fluid or air. No abdominal or pelvic lymphadenopathy. Aorta is normal in caliber without aneurysm. There are no suspicious osseous lesions. IMPRESSION: 1. No acute abnormality in the abdomen or pelvis. Dictated by: Dictated on workstation # [id number]
[2022-08-05] MEDS ORDERED: DICY20TA PO (18:52)
[2022-08-05] MEDS ORDERED: ONDA4TAB11 PO (18:53)
[2022-08-05 19:13] VITALS: BP 132/85
== END 2022-08-05 19:13 | disposition home or self-care (01) ==
LOC: EDUNIT# 16:52 → ER 16:55
DX: K58.9 Irritable bowel syndrome, unspecified (principal); F17.200 Nicotine dependence, unspecified, uncomplicated; Z20.822 Contact with and (suspected) exposure to COVID-19; Z28.310 Unvaccinated for COVID-19
CPT/HCPCS: 36415; 74177; 80053; 85025; 87636

== ENCOUNTER 2023-03-13 14:10 | Emergency (ER) | payer MEDICAID ==
[~2023-03-13] VITALS: Ht 167.7 cm; Wt 85.3 kg
[~2023-03-13 14:10] MED LIST changes: +ALBU8.5H6 IH; -D-ME473S11 PO; +DICY20TA PO; +ONDA4TAB11 PO; +PROM473S15 PO; -RT-ALBUINH IH
--- NOTE | 2023-03-13 14:36 | ED General ---
General Chief Complaint: Ear Problems Stated Complaint: MIGRAINE/EAR PAIN Nursing Triage Note: PT AMB TO RM 5 WITH COMPLAINT OF RIGHT EAR PAIN AND HEADACHE. STATES HE WOKE UP WITH A MIGRAINE THIS MORNING. STATES RIGHT EAR PAIN STARTED TWO DAYS AGO. Source of Information: Patient Exam Limitations: No Limitations History of Present Illness Date Seen by Provider: March 13, 2023 Time Seen by Provider: 14:36 Initial Comments Patient is a 32yo male who presents to the ER with a complaint of frontal headache and bilateral ear pain right greater than left. He states ear pain and headache started a week ago. No fevers. Has a long history of "ear problems" after taking a baseball at 90mph to the nose and having sinus/nose surgeries. Has never seen an ear doctor. Recurrent ear infections. He has had headaches just like this in the past. Was not "thunderclap" in onset. Is a smoker (1/2ppd). No nausea or vomiting. Light makes head hurt worse. Has tried OTC meds at home without relief. No vision changes. No unilateral numbness/weakness/tingling to extremities. Timing/Duration: 1 Week Severity: Severe Associated Systoms: Malaise, Other (ear pain) Allergies and Home Medications Allergies Coded Allergies: Penicillins (Verified Allergy, Severe, 10/21/21) Patient Home Medication List Home Medication List Reviewed: Yes Cefdinir (Cefdinir) 300 Mg Capsule, 300 MG PO BID Prescribed by: LESLIE GUDINO on 03/13/23 153 Dicyclomine HCl (Dicyclomine HCl) 20 Mg Tablet, 20 MG PO Q6H Prescribed by: MARGIE GOODWIN on 08/05/22 185 Ondansetron (Ondansetron Odt) 4 Mg Tab.rapdis, 4 MG PO Q6H PRN for SHAHANA SEA/VOMITING Prescribed by: MARGIE GOODWIN on 08/05/22 185 Review of Systems Review of Systems Constitutional: see HPI EENTM: ear pain (right ear) Respiratory: no symptoms reported Cardiovascular: no symptoms reported Musculoskeletal: no symptoms reported Skin: no symptoms reported Psychiatric/Neurological: Headache Past Ugizjkc-Efmqcj-Fefwaa Hx Patient Social History Tobacco Use?: Yes Tobacco type used: Cigarettes Smoking Status: Current Everyday Smoker Use of E-Cig and/or Vaping dev: No Substance use?: No Alcohol Use?: No Pt feels they are or have been: No Immunizations Up To Date Tetanus Booster (TDap): More than 5yrs First/Initial COVID19 Vaccinat: N/A Second COVID19 Vaccination Gunnar: N/A Third COVID19 Vaccination Date: N/A Seasonal Allergies Seasonal Allergies: No Past Medical History Surgeries: Yes (NOSE, TIB/FIB REPAIR, RT ANKLE) Adenoidectomy, Orthopedic, Tonsillectomy Respiratory: Yes (INHALER YEARS AGO) Asthma Currently Using CPAP: No Currently Using BIPAP: No Cardiac: No Neurological: No Reproductive Disorders: No Sexually Transmitted Disease: No HIV/AIDS: No Genitourinary: No Gastrointestinal: Yes Irritable Bowel Musculoskeletal: Yes (knee problems) Endocrine: No HEENT: No Loss of Vision: Denies Hearing Impairment: Denies Cancer: No Psychosocial: No Integumentary: No Blood Disorders: No Adverse Reaction/Blood Tranf: No Family Medical History No Pertinent Family Hx Physical Exam Vital Signs Vital Signs - First Documented 03/13/23 14:22 Pulse 75 Resp 16 B/P (MAP) 130/88 (102) Pulse Ox 97 O2 Delivery Room Air Capillary Refill : Less Than 3 Seconds Height, Weight, BMI Height: 5'6.00" Weight: 193lbs. oz. 87.977321jt; 30.00 BMI Method:Stated General Appearance: WD/WN, Mild Distress Eyes: Bilateral Eye Normal Inspection, Bilateral Eye PERRL, Bilateral Eye EOMI HEENT: TM Abnormal (R) (erythema of the TM with effusion and alteration of light reflex) Neck: Normal Inspection Respiratory: Lungs Clear, Normal Breath Sounds, No Accessory Muscle Use, No Respiratory Distress Cardiovascular: Regular Rate, Rhythm, Normal Peripheral Pulses Gastrointestinal: Non Tender, Soft Extremity: Normal Capillary Refill, Normal Inspection, Normal Range of Motion Neurologic/Psychiatric: Alert, Oriented x3, No Motor/Sensory Deficits, Normal Mood/Affect, developmental behavioral physician II-XII Norm as Tested Skin: Normal Color, Warm/Dry Procedures/Interventions Patient Education: Explained Benefits, Explained Risks, Pt. Ack. Understanding Breath Sounds per Auscultation: Wheezes Heart Sounds per Auscultation: Regular Airway Exam: Mouth opens >2 fingers, Neck Full Range of Motion, Visulation of Uvula Progress/Results/Core Measures Suspected Sepsis SIRS Temperature: Pulse: 75 Respiratory Rate: 16 Blood Pressure 130 /88 Mean: 102 Results/Orders My Orders Orders - LESLIE GUDINO MD Ed Iv/Invasive Line Start (03/13/23 14:46) Ketorolac Injection (Toradol Injection) (03/13/23 15:00) Prochlorperazine Injection (Compazine In (03/13/23 15:00) Diphenhydramine Injection (Benadryl Inje (03/13/23 15:00) Ns Iv 1000 Ml (Sodium Chloride 0.9%) (03/13/23 14:46) Cefdinir Capsule (Omnicef Capsule) (03/13/23 15:00) Medications Given in ED Current Medications Medications Dose Ordered Sig/Sharon Route Start Time Stop Time Status Last Admin Dose Admin Cefdinir 300 mg ONCE ONCE PO 03/13/23 15:00 03/13/23 15:01 DC 03/13/23 15:15 300 MG Diphenhydramine HCl 25 mg ONCE ONCE IVP 03/13/23 15:00 03/13/23 15:01 DC 03/13/23 15:16 25 MG Ketorolac Tromethamine 30 mg ONCE ONCE IVP 03/13/23 15:00 03/13/23 15:01 DC 03/13/23 15:15 30 MG Prochlorperazine Edisylate 10 mg ONCE ONCE IV 03/13/23 15:00 03/13/23 15:01 DC 03/13/23 15:15 10 MG Vital Signs/I&O 03/13/23 14:22 Pulse 75 Resp 16 B/P (MAP) 130/88 (102) Pulse Ox 97 O2 Delivery Room Air Capillary Refill : Less Than 3 Seconds Blood Pressure Mean: 102 Progress Note : Time: 15:46 Progress Note Feeling much better. Thinks he can go home and get some sleep. Return precautions provided. Departure Impression Primary Impression: Otitis media Qualified Codes: H66.004 - Acute suppurative otitis media without spontaneous rupture of ear drum, recurrent, right ear Additional Impression: Headache Qualified Codes: R51.9 - Headache, unspecified Disposition: 01 HOME, SELF-CARE Condition: Improved Departure-Patient Inst. Decision time for Depature: 15:30 Referrals: ASYA INGRAM MD [facility] (PCP/Family) Primary Care Physician Patient Instructions: Ear Infection ED Add. Discharge Instructions: Drink plenty of fluids to stay well hydrated. You can take over the counter ibuprofen 600mg (3 pills) every 6 hours as needed for pain. Always take ibuprofen with food. Take the Cefdinir antibiotic 300mg twice a day for 10 days. Finish the entire prescription. You should try and quit smoking for better health. Follow up with a primary care physician or Dr Ingram (Ear doctor) for your recurrent ear infections. Return to the Emergency Department for any new, concerning or emergent complaints. Scripts Cefdinir (Cefdinir) 300 Mg Capsule 300 MG PO BID for 10 Days, #19 CAP 0 Refills Prov: LESLIE GUDINO MD 03/13/23 Work/School Note: Work Release Form Date Seen in the Emergency Department: March 13, 2023 Return to Work: March 15, 2023 Copy Copies To 1: ZEN ROCKWELL KATHRYN M MD March 13, 2023 14:36
[2023-03-13] MEDS ORDERED: NS IV 1000 ML 1,000 ML IV STA (14:46)
[2023-03-13] MEDS ORDERED: diphenhydrAMINE 50 MG/ML INJ (BENADRYL) IVP ONE (15:00)
[2023-03-13] MEDS ORDERED: CEFDINIR 300 MG (OMNICEF) CAP PO ONE (15:00)
[2023-03-13] MEDS ORDERED: PROCHLORPERAZINE 10 MG/2ML INJ (COMPAZINE) IV ONE (15:00)
[2023-03-13] MEDS ORDERED: KETOROLAC 30 MG/ML VIAL IVP ONE (15:00)
[2023-03-13] MEDS ORDERED: CEFD300C3 PO (15:32)
[2023-03-13 15:55] VITALS: BP 125/79
== END 2023-03-13 15:56 | disposition home or self-care (01) ==
LOC: EDUNIT# 14:10 → ER 14:13
DX: H66.91 Otitis media, unspecified, right ear (principal); F17.210 Nicotine dependence, cigarettes, uncomplicated; Z28.310 Unvaccinated for COVID-19; Z88.0 Allergy status to penicillin

== ENCOUNTER 2023-03-24 11:31 | Emergency (ER) | payer MEDICAID ==
[~2023-03-24] VITALS: Ht 167 cm; Wt 83.0 kg
[~2023-03-24 11:31] MED LIST changes: +CEFD300C3 PO
[2023-03-24 11:45] VITALS: BP 140/83
--- NOTE | 2023-03-24 12:29 | ED Upper Extremity ---
General Chief Complaint: Upper Extremity Stated Complaint: RT HAND INJ Nursing Triage Note: ARRIVED VIA AMB TO ROOM 04 WITH COMPLAINTS OF RIGHT HAND PAIN. STATES HIT WAS SHUT IN A CAR DOOR YESTERDAY. Source: patient Exam Limitations: no limitations History of Present Illness Date Seen by Provider: Mar 24, 2023 Time Seen by Provider: 12:29 Initial Comments Patient is a 32-year-old male who presents to the emergency room with a chief complaint of right hand pain. He states that he slammed his hand in a car door yesterday and yanked it out. He has not taken anything for pain. He states he has the most pain radiating into his second third and fourth fingers. He has not put any ice on it. Denies numbness. Last tetanus shot was 1 year ago. Onset: yesterday Severity: moderate Pain/Injury Location: right hand Method of Injury: direct blow Modifying Factors: Worse With Movement Allergies and Home Medications Allergies Coded Allergies: Penicillins (Verified Allergy, Severe, 10/21/21) Patient Home Medication List Home Medication List Reviewed: Yes Cefdinir (Cefdinir) 300 Mg Capsule, 300 MG PO BID Prescribed by: LESLIE GUDINO on 03/13/23 153 Dicyclomine HCl (Dicyclomine HCl) 20 Mg Tablet, 20 MG PO Q6H Prescribed by: MARGIE GOODWIN on 08/05/22 185 Ondansetron (Ondansetron Odt) 4 Mg Tab.rapdis, 4 MG PO Q6H PRN for NAUSEA/VOMITING Prescribed by: MARGIE GOODWIN on 08/05/22 185 Review of Systems Constitutional: see HPI Musculoskeletal: joint pain (right hand pain) Past Xzkcjhy-Gfngos-Vdxoya Hx Patient Social History Tobacco Use?: Yes Tobacco type used: Cigarettes Substance use?: No Alcohol Use?: No Immunizations Up To Date Tetanus Booster (TDap): More than 5yrs First/Initial COVID19 Vaccinat: N/A Second COVID19 Vaccination Gunnar: N/A Third COVID19 Vaccination Date: N/A Seasonal Allergies Seasonal Allergies: No Past Medical History Surgeries: Yes (NOSE, TIB/FIB REPAIR, RT ANKLE) Adenoidectomy, Orthopedic, Tonsillectomy Respiratory: Yes (INHALER YEARS AGO) Asthma Currently Using CPAP: No Currently Using BIPAP: No Cardiac: No Neurological: No Reproductive Disorders: No Sexually Transmitted Disease: No HIV/AIDS: No Genitourinary: No Gastrointestinal: Yes Irritable Bowel Musculoskeletal: Yes (knee problems) Endocrine: No HEENT: No Loss of Vision: Denies Hearing Impairment: Denies Cancer: No Psychosocial: No Integumentary: No Blood Disorders: No Adverse Reaction/Blood Tranf: No Family Medical History No Pertinent Family Hx Physical Exam Vital Signs Vital Signs - First Documented 03/24/23 11:45 Temp 36.3 Pulse 72 Resp 16 B/P (MAP) 140/83 (102) Pulse Ox 97 O2 Delivery Room Air Capillary Refill : Less Than 3 Seconds Height, Weight, BMI Height: 5'6.00" Weight: 193lbs. oz. 87.141752ns; 29.00 BMI Method:Stated General Appearance: WD/WN, no apparent distress Respiratory: no respiratory distress, no accessory muscle use Shoulder: normal inspection, non-tender, no evidence of injury, normal ROM Elbow/Forearm: normal inspection, non-tender, no evidence of injury, normal ROM, Right Wrist: Yes normal inspection, Yes non-tender, Yes no evidence of injury, Yes normal ROM Hand: Right, swelling (dorsum right hand over the 3rd MC (distal aspect). tender to palpation. Normal ROM fingers. Normal sensation) Neurologic/Tendon: normal sensation, normal motor functions, normal tendon functions Neurologic/Psychiatric: alert, normal mood/affect, oriented x 3 Skin: normal color, warm/dry Procedures/Interventions Patient Education: Explained Benefits, Explained Risks, Pt. Ack. Understanding Breath Sounds per Auscultation: Wheezes Heart Sounds per Auscultation: Regular Airway Exam: Mouth opens >2 fingers, Neck Full Range of Motion, Visulation of Uvula Progress/Results/Core Measures Results/Orders My Orders Orders - LESLIE GUDION MD Hand, Right, 3 Views (03/24/23 12:34) Ibuprofen Tablet (Motrin Tablet) (03/24/23 12:45) Medications Given in ED Current Medications Medications Dose Ordered Sig/Sharon Route Start Time Stop Time Status Last Admin Dose Admin Ibuprofen 600 mg ONCE ONCE PO 03/24/23 12:45 03/24/23 12:46 DC 03/24/23 12:45 600 MG Vital Signs/I&O 03/24/23 11:45 Temp 36.3 Pulse 72 Resp 16 B/P (MAP) 140/83 (102) Pulse Ox 97 O2 Delivery Room Air Blood Pressure Mean: 102 Diagnostic Imaging Diagonstic Imaging: Xray Comments [facility] [place], [place] NAME: ROBI BRAVO [facility] REC#: [id number] PT STATUS: REG ER : 1990 PHYSICIAN: LESLIE GUDINO MD ADMIT DATE: 03/24/23/ER Draft Date of Exam:03/24/23 HAND, RIGHT, 3 VIEWS EXAMINATION: Right hand radiograph EXAM DATE: 03/24/2023 12:55 PM COMPARISON: None available. HISTORY: Right hand pain after injury TECHNIQUE: 3 views FINDINGS: There is no acute fracture, dislocation, or destructive osseous process. The joint spaces are normal. The soft tissues are normal. IMPRESSION: 1. No acute osseous abnormality. Dictated on workstation # [id number] Dict: 03/24/23 1256 Trans: 03/24/23 1257 [facility] [id number] Interpreted by: TARA SIMPSON DO Electronically signed by: Departure Impression Primary Impression: Contusion of hand Qualified Codes: S60.221A - Contusion of right hand, initial encounter Disposition: 01 HOME, SELF-CARE Condition: Stable Departure-Patient Inst. Decision time for Depature: 13:04 Referrals: NO,LOCAL PHYSICIAN (PCP/Family) Primary Care Physician Patient Instructions: Contusion (DC) Add. Discharge Instructions: Keep the hand elevated and up so that the swelling will go down. Apply the ice pack 20 minutes at a time 3 times daily to also keep swelling down. Msbf-eat-lutsmyr ibuprofen tablets 3 of them, every 6 hours with food as needed for pain. Follow-up with your primary care physician as needed. Return to the emergency department for any new, concerning or emergent complaints. Work/School Note: Work Release Form Date Seen in the Emergency Department: Mar 24, 2023 Return to Work: Mar 25, 2023 LESLIE GUDINO MD Mar 24, 2023 12:29
[2023-03-24] MEDS ORDERED: IBUPROFEN 600 MG (MOTRIN) TAB PO ONE (12:45)
--- NOTE | 2023-03-24 12:57 | Diagnostic Imaging Report ---
EXAMINATION: Right hand radiograph EXAM DATE: 03/24/2023 12:55 PM COMPARISON: None available. HISTORY: Right hand pain after injury TECHNIQUE: 3 views FINDINGS: There is no acute fracture, dislocation, or destructive osseous process. The joint spaces are normal. The soft tissues are normal. IMPRESSION: 1. No acute osseous abnormality. Dictated by: Dictated on workstation # [id number]
== END 2023-03-24 13:18 | disposition home or self-care (01) ==
LOC: EDUNIT# 11:31 → ER 11:33
DX: S60.221A Contusion of right hand, initial encounter (principal); F17.210 Nicotine dependence, cigarettes, uncomplicated; W23.0XXA Caught, crushed, jammed, or pinched between moving objects, initial encounter
CPT/HCPCS: 73130

== ENCOUNTER 2023-04-28 11:15 | Emergency (ER) | payer MEDICAID ==
--- NOTE | 2023-04-28 11:38 | ED Abdominal Pain ---
General Chief Complaint: Abdominal/GI Problems Stated Complaint: STOMACH ULCERS | IBS Nursing Triage Note: PT AMB TO RM 8 PT CO OF DIARRHEA SEVERAL TIMES FOR LAST FEW DAYS. NO FEVERS. DENIES BLOOD IN STOOLS. PT HAS SORES ALL OVER BODY. RATES ABD PAIN 07/27 Source of Information: Patient Exam Limitations: No Limitations History of Present Illness Date Seen by Provider: Apr 28, 2023 Time Seen by Provider: 11:38 Initial Comments Patient is a 32-year-old male who presents to the emergency department with a chief complaint of abdominal bloating and pain, at least 12 episodes of diarrhea since last night. He states he has felt generalized malaise over the last couple of days, no fevers. A little nausea. No blood in his stool. He states he has a history of "irritable bowel". He denies problems with urination. He i s not on any daily prescribed medications other than daily Prilosec. He states he takes this actually intermittently. He was supposed to be on some medication for irritable bowel through [facility] however he states they inadvertently put him on 3 times the normal dose and he quit going.. He has a rash diffusely that he states has worsened in the last couple of days. He put an qvok-lch-glcique ointment on last night and it is improved today. States that he has taken Tylenol and ibuprofen without relief of symptoms. No history of any abdominal surgeries Timing/Duration: 1-2 Days Severity/Quality: Severe, Cramping Location: Generalized Abdomen Radiation: No Radiation Modifying Factors: Worsens With Eating, Worsens With Movement Associated Symptoms: Nausea/Vomiting (nausea without vomiting), Swelling/Mass in Abdomen ("bloated") Allergies and Home Medications Allergies Coded Allergies: Penicillins (Verified Allergy, Severe, 10/21/21) Patient Home Medication List Home Medication List Reviewed: Yes Cefdinir (Cefdinir) 300 Mg Capsule, 300 MG PO BID Prescribed by: LESLIE GUDINO on 03/13/23 153 Dicyclomine HCl (Dicyclomine HCl) 20 Mg Tablet, 20 MG PO Q6H Prescribed by: MARGIE GOODWIN on 08/05/22 185 Ondansetron (Ondansetron Odt) 4 Mg Tab.rapdis, 4 MG PO Q6H PRN for NAUSEA/VOMITING Prescribed by: MARGIE GOODWIN on 08/05/22 741 Review of Systems Review of Systems Constitutional: see HPI Respiratory: No Symptoms Reported Cardiovascular: No Symptoms Reported Gastrointestinal: Abdomen Distended, Abdominal Pain, Diarrhea, Nausea Genitourinary: No Symptoms Reported Musculoskeletal: no symptoms reported Skin: pruritus, rash All Other Systems Reviewed Negative Unless Noted: Yes Past Yzxkgmw-Eohbsm-Pkmgjl Hx Patient Social History Tobacco Use?: Yes Tobacco type used: Cigarettes Smoking Status: Current Everyday Smoker Substance use?: No Alcohol Use?: No Pt feels they are or have been: No Immunizations Up To Date Tetanus Booster (TDap): More than 5yrs First/Initial COVID19 Vaccinat: N/A Second COVID19 Vaccination Gunnar: N/A Third COVID19 Vaccination Date: N/A Seasonal Allergies Seasonal Allergies: No Past Medical History Surgery/Hospitalization HX: IBS, STOMACH ULCERS Surgeries: Yes (NOSE, TIB/FIB REPAIR, RT ANKLE) Adenoidectomy, Orthopedic, Tonsillectomy Respiratory: Yes (INHALER YEARS AGO) Asthma Currently Using CPAP: No Currently Using BIPAP: No Cardiac: No Neurological: No Reproductive Disorders: No Sexually Transmitted Disease: No HIV/AIDS: No Genitourinary: No Gastrointestinal: Yes Irritable Bowel Musculoskeletal: Yes (knee problems) Endocrine: No HEENT: No Loss of Vision: Denies Hearing Impairment: Denies Cancer: No Psychosocial: No Integumentary: No Blood Disorders: No Adverse Reaction/Blood Tranf: No Family Medical History No Pertinent Family Hx Physical Exam Vital Signs Vital Signs - First Documented 04/28/23 11:25 Temp 36.1 Pulse 79 Resp 18 B/P (MAP) 137/98 (111) Pulse Ox 95 Capillary Refill : Less Than 3 Seconds Height/Weight/BMI Height: 5'6.00" Weight: 193lbs. oz. 87.727899mg; 29.00 BMI Method:Stated General Appearance: WD/WN, no apparent distress HEENT: PERRL/EOMI Neck: full range of motion Respiratory: lungs clear, normal breath sounds, no respiratory distress, no accessory muscle use Cardiovascular: regular rate, rhythm Gastrointestinal: soft, tenderness (diffuse mild tenderness without involuntary guarding or rebound tenderness; BS are present.) Extremities: normal range of motion, normal inspection, no pedal edema Neurologic/Psychiatric: alert, normal mood/affect, oriented x 3 Skin: other (diffuse papular rash without cellulitic findings.) Procedures/Interventions Patient Education: Explained Benefits, Explained Risks, Pt. Ack. Understanding Breath Sounds per Auscultation: Wheezes Heart Sounds per Auscultation: Regular Airway Exam: Mouth opens >2 fingers, Neck Full Range of Motion, Visulation of Uvula Progress/Results/Core Measures Results/Orders Lab Results Laboratory Tests Test 04/28/23 12:10 Range/Units White Blood Count 10.4 4.3-11.0 10^3/uL Red Blood Count 4.78 4.30-5.52 10^6/uL Hemoglobin 14.7 13.3-17.7 g/dL Hematocrit 45 40-54 % Mean Corpuscular Volume 94 80-99 fL Mean Corpuscular Hemoglobin 31 25-34 pg Mean Corpuscular Hemoglobin Concent 33 32-36 g/dL Red Cell Distribution Width 13.8 10.0-14.5 % Platelet Count 241 130-400 10^3/uL Mean Platelet Volume 9.6 9.0-12.2 fL Immature Granulocyte % (Auto) 0 % Neutrophils (%) (Auto) 55 42-75 % Lymphocytes (%) (Auto) 33 12-44 % Monocytes (%) (Auto) 4 0-12 % Eosinophils (%) (Auto) 6 0-10 % Basophils (%) (Auto) 1 0-10 % Neutrophils # (Auto) 5.7 1.8-7.8 10^3/uL Lymphocytes # (Auto) 3.5 1.0-4.0 10^3/uL Monocytes # (Auto) 0.5 0.0-1.0 10^3/uL Eosinophils # (Auto) 0.7 H 0.0-0.3 10^3/uL Basophils # (Auto) 0.1 0.0-0.1 10^3/uL Immature Granulocyte # (Auto) 0.0 0.0-0.1 10^3/uL Sodium Level 142 135-145 MMOL/L Potassium Level 4.1 3.6-5.0 MMOL/L Chloride Level 111 H 98-107 MMOL/L Carbon Dioxide Level 22 21-32 MMOL/L Anion Gap 9 5-14 MMOL/L Blood Urea Nitrogen 7 7-18 MG/DL Creatinine 0.66 0.60-1.30 MG/DL Estimat Glomerular Filtration Rate 127 BUN/Creatinine Ratio 11 Glucose Level 92 70-105 MG/DL Calcium Level 8.8 8.5-10.1 MG/DL Corrected Calcium 8.9 8.5-10.1 MG/DL Total Bilirubin 0.2 0.1-1.0 MG/DL Aspartate Amino Transf (AST/SGOT) 15 5-34 U/L Alanine Aminotransferase (ALT/SGPT) 15 0-55 U/L Alkaline Phosphatase 70 40-136 U/L Total Protein 6.7 6.4-8.2 GM/DL Albumin 3.9 3.2-4.5 GM/DL My Orders Orders - LESLIE GUDINO MD Ed Iv/Invasive Line Start (04/28/23 11:50) Cbc With Automated Diff (04/28/23 11:50) Comprehensive Metabolic Panel (04/28/23 11:50) Dicyclomine Injection (Bentyl Injection) (04/28/23 11:50) Vital Signs/I&O 04/28/23 11:25 Temp 36.1 Pulse 79 Resp 18 B/P (MAP) 137/98 (111) Pulse Ox 95 Blood Pressure Mean: 111 Departure Impression Primary Impression: Abdominal bloating Disposition: HOME, SELF-CARE Condition: Improved Departure-Patient Inst. Decision time for Depature: 12:51 Referrals: NO,LOCAL PHYSICIAN (PCP/Family) Primary Care Physician Patient Instructions: LOCAL PHYSICIAN LIST, Gas and bloating Add. Discharge Instructions: Drink plenty of fluids to stay well hydrated. Get an over the counter Probiotic to help with gut health. Use the dicyclomine 30 min before meals to help with cramping with eating. Zofran for nausea as needed every 8 hours. Return to the Emergency Department for any new, emergent or concerning symptoms. Please follow up with a primary care physician for further evaluation and management of your Irritable Bowel. Scripts Ondansetron (Ondansetron Odt) 4 Mg Tab.rapdis 4 MG SL Q8H PRN for NAUSEA/VOMITING, #12 TAB Prov: LESLIE GUDINO MD 04/28/23 Dicyclomine HCl (Dicyclomine HCl) 20 Mg Tablet 20 MG PO QIDACHS PRN for abdominal cramping, #60 TAB Prov: LESLIE GUDINO MD 04/28/23 Work/School Note: Work Release Form Date Seen in the Emergency Department: Apr 28, 2023 Return to Work: Apr 29, 2023 LESLIE GUDINO MD Apr 28, 2023 11:38
[2023-04-28] MEDS ORDERED: DICYCLOMINE 10 MG/ML (BENTYL) 2 ML AMP IM STA (11:50)
[2023-04-28 12:15] LABS: BASOPHILS # (AUTO) 0.1 10^3/uL (0.0-0.1); BASOPHILS % (AUTO) 1 % (0-10); EOSINOPHILS # (AUTO) 0.7 10^3/uL (0.0-0.3); EOSINOPHILS % (AUTO) 6 % (0-10); HEMATOCRIT 45 % (40-54); HEMOGLOBIN 14.7 g/dL (13.3-17.7); LYMPHOCYTES # (AUTO) 3.5 10^3/uL (1.0-4.0); LYMPHOCYTES % (AUTO) 33 % (12-44); MEAN CORPUSCULAR HEMOGLOBIN 31 pg (25-34); MEAN CORPUSCULAR HGB CONC 33 g/dL (32-36); MEAN CORPUSCULAR VOLUME 94 fL (80-99); MEAN PLATELET VOLUME 9.6 fL (9.0-12.2); MONOCYTES # (AUTO) 0.5 10^3/uL (0.0-1.0); MONOCYTES % (AUTO) 4 % (0-12); NEUTROPHILS # (AUTO) 5.7 10^3/uL (1.8-7.8); NEUTROPHILS % (AUTO) 55 % (42-75); PLATELET COUNT 241 10^3/uL (130-400); WHITE BLOOD COUNT 10.4 10^3/uL (4.3-11.0)
[2023-04-28 12:25] LABS: ALBUMIN 3.9 GM/DL (3.2-4.5); POTASSIUM 4.1 MMOL/L (3.6-5.0)
[2023-04-28 12:27] LABS: CALCIUM 8.8 MG/DL (8.5-10.1)
[2023-04-28 12:28] LABS: TOTAL PROTEIN 6.7 GM/DL (6.4-8.2)
[2023-04-28 12:30] LABS: BILIRUBIN,TOTAL 0.2 MG/DL (0.1-1.0)
[2023-04-28 12:31] LABS: CREATININE SERUM 0.66 MG/DL (0.60-1.30)
[2023-04-28] MEDS ORDERED: ONDA4TAB11 SL (12:52)
[2023-04-28] MEDS ORDERED: DICY20TA PO (12:52)
[2023-04-28 13:08] VITALS: BP 135/87
== END 2023-04-28 13:09 | disposition home or self-care (01) ==
LOC: EDUNIT# 11:15 → ER 11:16
DX: R14.0 Abdominal distension (gaseous) (principal); R21 Rash and other nonspecific skin eruption; F17.210 Nicotine dependence, cigarettes, uncomplicated; Z87.19 Personal history of other diseases of the digestive system
CPT/HCPCS: 36415; 80053; 85025

== ENCOUNTER 2023-08-25 14:25 | Emergency (ER) | payer MEDICAID ==
[~2023-08-25] VITALS: Ht 167.7 cm; Wt 83.9 kg
[~2023-08-25 14:25] MED LIST changes: +ONDA4TAB11 SL
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
[2023-08-25] MEDS ORDERED: SULF1TAB38 PO (16:10)
[2023-08-25] MEDS ORDERED: CLOT15CR28 TP (16:10)
[2023-08-25] MEDS ORDERED: MUPI15CR11 TP (16:10)
[2023-08-25 16:18] VITALS: BP 138/85
== END 2023-08-25 16:20 | disposition home or self-care (01) ==
LOC: EDUNIT# 14:25 → ER 14:26
DX: L98.9 Disorder of the skin and subcutaneous tissue, unspecified (principal); F17.210 Nicotine dependence, cigarettes, uncomplicated
CPT/HCPCS: 99281